=== PATIENT | female | born 1965 | race Caucasian/White ===

== ENCOUNTER 2016-09-27 18:57 | Emergency (ER) | payer OTHER ==
--- NOTE | 2016-09-27 19:50 | ED NURSING NOTES ---
Clinical Report - Nurses [facility] [address] [place] [address] 09/27/2016 19:00 Patient: DEBRA GRANT TRIAGE Triage time 19:17. Chief Complaint: DEPRESSION. --19:24 TonyaB, R.N. 19:17 09/27/16. BP: 107/56. HR: 68. RR: 16. O2 saturation: 100%. Temp: 98.2 F. Pain level now: 0/10. --19:24 TonyaB, R.N. Acuity: LEVEL 3. --19:24 TonyaB, R.N. Weight: 61.2 kg. Height/Length: 64 inches. BMI: 23.2. --19:21 TonyaB, R.N. Medications Lexapro Oral. --19:19 TonyaB, R.N. Cymbalta Oral. --19:19 TonyaB, R.N. SEROquel Oral. --19:20 TonyaB, R.N. Allergies No Known Drug Allergy. --19:19 TonyaB, R.N. History Arrived by private vehicle. Historian: patient. Accompanied by friend and friend. ( pt states she can not sleep and is depressed, pt states she has trouble leaving the house). This is a recurrent problem. (3 weeks). She describes feelings of depression and has had sleeping difficulties. Treatment CRITICAL CARE SPECIALIST: None. PAST MEDICAL HX: Immunizations: up-to-date. Last normal menstrual period- 1 weeks. SOCIAL HX: Never smoker. No alcohol use or drug use. No infectious disease exposure. SELF HARM ASSESSMENT: A self harm assessment was performed. The patient answered "yes" to the question "Have you recently felt down, depressed, or hopeless?", "Have you noticed less interest or pleasure in doing things?" and "Have you ever tried to hurt yourself before today?" and "no" to the question "Do you have thoughts of harming or killing yourself?", "Are you here because you tried to hurt yourself?", "Have you recently had thoughts about harming or killing others?" and "Do you have any dangerous items in your possession?". FALL RISK ASSESSMENT: Fall risk assessment completed. No fall risk identified. NUTRITIONAL RISK ASSESSMENT: The nutritional risk assessment revealed no deficiencies. FUNCTIONAL ASSESSMENT: Functional assessment: no impairments noted. LEARNING NEEDS ASSESSMENT: The learning needs assessment revealed no barriers. SKIN INTEGRITY ASSESSMENT: Skin integrity risk assessment completed. No skin integrity risk identified. --19:24 Tarsha Ayala PROBLEMS: Depression. --19:20 Markell Ayala. ADDITIONAL SURGERIES: no known surgeries. PHYSICAL ASSESSMENT Ambulatory to room. GENERAL / NEURO / PSYCH: Alert. Oriented X 4. Appears in no acute distress. Speech within normal limits. Patient's mood/affect appears flat. Patient appears calm and cooperative. Good eye contact. Patient appears well-nourished and neat and clean. RESPIRATORY: Respirations not labored. Breath sounds within normal limits. CVS: Normal heart rate and rhythm. Capillary refill less than 2 seconds. GI / : Abdomen soft and nontender. Bowel sounds within normal limits. SKIN: Skin intact. Skin is warm and dry. Skin color is within normal limits. --19:29 Tarsha Ayala NURSING PROGRESS NOTES Patient identifiers checked. Call light placed in reach. Side rails up x 1. Bed placed in lowest position. Brakes of bed on. --19:29 Tarsha Ayala DISPOSITION / DISCHARGE Departure time: 19:55. Condition at departure: improved. No learning barriers present. Discharge instructions provided and reviewed with the patient. Reviewed medication(s) side effects, precautions, dosing and course information. Prescription(s) given to the patient. Reviewed referral to a psychiatrist. Patient verbalized understanding. Written instructions provided in Kuwaiti. No warning instructions, treatment instructions, diet instructions, activity restrictions or note given. No follow up contact number given or stop smoking instructions. The patient was discharged by the nurse practitioner. She was discharged home and accompanied by museum or zoo director. She left the Emergency Department ambulatory and via private vehicle. [employer] driving. FALL RISK ASSESSMENT: Fall risk assessment completed. No fall risk identified. --20:03 Tarsha Ayala 19:53 09/27/16. BP: deferred. HR: deferred. RR: deferred. O2 saturation: deferred. Temp: deferred. Pain level now: 0/10. --20:03 Markell Ayala. Locked/Released at 09/27/2016 20:03 by Tarsha Ayala
--- NOTE | 2016-09-27 19:50 | ED NURSING NOTES ---
Clinical Report - Nurses [facility] [address] [place] [address] 09/27/2016 19:00 Patient: DEBRA GRANT TRIAGE Triage time 19:17. Chief Complaint: DEPRESSION. --19:24 TonyaB, R.N. 19:17 09/27/16. BP: 107/56. HR: 68. RR: 16. O2 saturation: 100%. Temp: 98.2 F. Pain level now: 0/10. --19:24 TonyaB, R.N. Acuity: LEVEL 3. --19:24 TonyaB, R.N. Weight: 61.2 kg. Height/Length: 64 inches. BMI: 23.2. --19:21 TonyaB, R.N. Medications Lexapro Oral. --19:19 TonyaB, R.N. Cymbalta Oral. --19:19 TonyaB, R.N. SEROquel Oral. --19:20 TonyaB, R.N. Allergies No Known Drug Allergy. --19:19 TonyaB, R.N. History Arrived by private vehicle. Historian: patient. Accompanied by friend and friend. ( pt states she can not sleep and is depressed, pt states she has trouble leaving the house). This is a recurrent problem. (3 weeks). She describes feelings of depression and has had sleeping difficulties. Treatment SALES APPOINTMENT COORDINATOR: None. PAST MEDICAL HX: Immunizations: up-to-date. Last normal menstrual period- 1 weeks. SOCIAL HX: Never smoker. No alcohol use or drug use. No infectious disease exposure. SELF HARM ASSESSMENT: A self harm assessment was performed. The patient answered "yes" to the question "Have you recently felt down, depressed, or hopeless?", "Have you noticed less interest or pleasure in doing things?" and "Have you ever tried to hurt yourself before today?" and "no" to the question "Do you have thoughts of harming or killing yourself?", "Are you here because you tried to hurt yourself?", "Have you recently had thoughts about harming or killing others?" and "Do you have any dangerous items in your possession?". FALL RISK ASSESSMENT: Fall risk assessment completed. No fall risk identified. NUTRITIONAL RISK ASSESSMENT: The nutritional risk assessment revealed no deficiencies. FUNCTIONAL ASSESSMENT: Functional assessment: no impairments noted. LEARNING NEEDS ASSESSMENT: The learning needs assessment revealed no barriers. SKIN INTEGRITY ASSESSMENT: Skin integrity risk assessment completed. No skin integrity risk identified. --19:24 Tarsha Ayala PROBLEMS: Depression. --19:20 Markell Ayala. ADDITIONAL SURGERIES: no known surgeries. PHYSICAL ASSESSMENT Ambulatory to room. GENERAL / NEURO / PSYCH: Alert. Oriented X 4. Appears in no acute distress. Speech within normal limits. Patient's mood/affect appears flat. Patient appears calm and cooperative. Good eye contact. Patient appears well-nourished and neat and clean. RESPIRATORY: Respirations not labored. Breath sounds within normal limits. CVS: Normal heart rate and rhythm. Capillary refill less than 2 seconds. GI / : Abdomen soft and nontender. Bowel sounds within normal limits. SKIN: Skin intact. Skin is warm and dry. Skin color is within normal limits. --19:29 Tarsha Ayala NURSING PROGRESS NOTES Patient identifiers checked. Call light placed in reach. Side rails up x 1. Bed placed in lowest position. Brakes of bed on. --19:29 Tarsha Ayala DISPOSITION / DISCHARGE Departure time: 19:55. Condition at departure: improved. No learning barriers present. Discharge instructions provided and reviewed with the patient. Reviewed medication(s) side effects, precautions, dosing and course information. Prescription(s) given to the patient. Reviewed referral to a psychiatrist. Patient verbalized understanding. Written instructions provided in Egyptian. No warning instructions, treatment instructions, diet instructions, activity restrictions or note given. No follow up contact number given or stop smoking instructions. The patient was discharged by the nurse practitioner. She was discharged home and accompanied by performance architect. She left the Emergency Department ambulatory and via private vehicle. [employer] driving. FALL RISK ASSESSMENT: Fall risk assessment completed. No fall risk identified. --20:03 Tarsha Ayala 19:53 09/27/16. BP: deferred. HR: deferred. RR: deferred. O2 saturation: deferred. Temp: deferred. Pain level now: 0/10. --20:03 Markell Ayala. Locked/Released at 09/27/2016 20:03 by Tarsha Ayala
--- NOTE | 2016-09-27 19:50 | ED CLINICAL REPORT ---
Clinical Report - Physicians/Mid Levels [facility] [address] [place] [address] 09/27/2016 19:00 Patient: DEBRA GRANT Time Seen: 19:22; upon arrival, initial patient contact, initial documentation, patient care assumed. Arrived- By private vehicle. Not in custody. Historian- patient and significant other. HISTORY OF PRESENT ILLNESS Chief Complaint: DEPRESSED and WITHDRAWN. This started about 1 months ago. No situational problems or recent drug use or alcohol consumption. She has not exhibited a behavior change, was not found wandering and is compliant with medication. (has suffered from major depressive disorder for years, last month it is getting worse, affecting her sleep and her adl's, pt is here tonight wanting to see and speak psychiatrist). Has not been sleeping. Has been depressed. No delusions, suicidal thoughts, self-injury inflicted or hallucinations. The symptoms are described as moderate. No injury is present. Similar symptoms previously: Recent medical care: The patient was seen recently by a health care provider. Seen for similar symptoms. Diagnosis: depression. ( was told by her dr to get into good exercise and sleep routine, advised to start every day with some type of exercise, to help with depression and sleep, pt has not done it). Evaluation/treatment: antidepressants. REVIEW OF SYSTEMS All systems otherwise negative, except as recorded above. PAST HISTORY See nurses notes. ( PROBLEMS: Depression. --19:20 Markell Ayala. ADDITIONAL SURGERIES: no known surgeries.). SOCIAL HISTORY Never smoker. No alcohol use or drug use. Has social support. Has place to stay. FAMILY HISTORY Negative. ADDITIONAL NOTES The nursing notes have been reviewed with agreement regarding the chief complaint, HPI, ROS, PMH and patient medications and allergies. PHYSICAL EXAM Vital Signs: 09/27/2016 19:17 BP: 107/56. HR: 68. RR: 16. O2 saturation: 100%. Temp: 98.2 F. Pain level now: 0/10. Have been reviewed as normal and appear to be correct. Appearance: Alert. No acute distress. Appearance is normal. Eyes: Pupils equal, round and reactive to light. Neck: Normal inspection. Neck supple. CVS: Normal heart rate and rhythm. Heart sounds normal. Respiratory: Breath sounds normal. Chest nontender. Abdomen: Soft and nontender. Back: No tenderness. Skin: Skin warm and dry. Normal skin color. Normal skin turgor. Extremities: Extremities exhibit normal ROM. No lower extremity edema. Psych / Neuro: Oriented X 3. Mood and affect normal. Speech normal. Cognition normal. Thought process and content normal. Insight and judgement normal. Cranial nerves normal (as tested). No cerebellar findings. No motor deficit. No sensory deficit. PROGRESS AND PROCEDURES Course of Care: tx options discussed, re calling in pat person, give names of psychiatrists, sleep meds, exercise routine, getting involved in hobbies/activities that she enjoys. Patient and spouse counseled in person regarding the patient's stable condition and diagnosis. Differential Diagnosis: Other possible considerations: si, depression, insomnia, bipolar. Above considerations are based on history and physical exam. Differential diagnosis was discussed with patient and patient's spouse. Disposition: Discharged home in good and unchanged condition (19:50). Condition: good and stable. CLINICAL IMPRESSION Recurrent mild major depressive disorder without psychosis. No suicidal ideation or suicidal attempt. Psychophysiologic insomnia associated with medical condition. INSTRUCTIONS Warnings: GENERAL WARNINGS: Return or contact your physician immediately if your condition worsens or changes unexpectedly, if not improving as expected, or if other problems arise. Specifically return if problem worsens. Prescription Medications: Lunesta 2 mg: take 1 orally at bedtime as needed for sleep. Dispense ten (10). No refills. Substitution is permissible. Follow-up: Follow up with a psychiatrist in about two days even if well. Call for an appointment. Reason for referral: see list of psychiatrist given. Summary of care provided to patient and family. Understanding of the discharge instructions verbalized by patient. (Electronically signed by Lisandra Sanchez A.R.N.P. 09/27/2016 21:00)
--- NOTE | 2016-09-27 21:00 | ED MED RECONCILIATION SUMMARY ---
Patient: DEBRA GRANT Medication Reconciliation Report [facility] VisitID: [id number] [address] [place] [address] 51y, F Registration Date/Time: 09/27/2016 Weight: 61.2 kg Height/Length: 64 in. BMI: 23.2 ALLERGIES: No Known Drug Allergy The patient's Home Medications are listed below: THE FOLLOWING MEDICATIONS NEED TO BE RECONCILED: Cymbalta Oral Lexapro Oral SEROquel Oral The source(s) of the original Home Medication information: Not obtained. The following Medications were given to the patient in the Emergency Department: None. The following Medications were prescribed to the patient: Lunesta 2 mg: take 1 orally at bedtime as needed for sleep. Dispense ten (10). No refills. Substitution is permissible. -- Lisandra Sanchez A.R.N.P.
--- NOTE | 2016-09-27 21:00 | ED MAR SUMMARY ---
..... Medication Administration Record [facility] [address], [place] [id number] Patient: DEBRA GRANT Visit ID: [id number] 51y, F Weight: 61.2 kg Height/Length: 64 in BMI: 23.2 ALLERGIES: No Known Drug Allergy
--- NOTE | 2016-09-27 21:00 | ED MAR SUMMARY ---
..... Medication Administration Record [facility] [address] [place], [place] [id number] Patient: DEBRA GRANT Visit ID: [id number] 51y, F Weight: 61.2 kg Height/Length: 64 in BMI: 23.2 ALLERGIES: No Known Drug Allergy
--- NOTE | 2016-09-27 21:00 | ED DISCHARGE INSTRUCTIONS ---
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 No suicidal ideation or suicidal attempt. Psychophysiologic insomnia associated with medical condition. INSTRUCTIONS Warnings: GENERAL WARNINGS: Return or contact your physician immediately if your condition worsens or changes unexpectedly, if not improving as expected, or if other problems arise. Specifically return if problem worsens. Prescription Medications: Lunesta 2 mg: take 1 orally at bedtime as needed for sleep. Dispense ten (10). No refills. Substitution is permissible. Follow-up: Follow up with a psychiatrist in about two days even if well. Call for an appointment. Reason for referral: see list of psychiatrist given. Summary of care provided to patient and family. Understanding of the discharge instructions verbalized by patient. ADDITIONAL INFORMATION Depression Depression is one of the most common mental health problems today. It is not just a state of unhappiness or sadness. It is a true disease. The cause seems to be related to a decrease in chemicals that transmit signals in the brain. Having a family history of depression, alcoholism or suicide increases the risk. Chronic illness, chronic pain, migraine headaches and high emotional stress also increase the risk. Depression can cause many different symptoms, such as: -- Loss of appetite -- Over-eating -- Not being able to sleep -- Sleeping too much -- Tiredness not related to physical exertion -- Restlessness or irritability -- Slowness of movement or speech -- Feeling depressed or withdrawn -- Loss of interest in things you once enjoyed -- Difficulty in concentrating, poor memory, have trouble making decisions -- Thoughts of harming or killing oneself, or thoughts that life is not worth living -- Low self-esteem The best treatment for depression is a combination of medicine and psychotherapy. Antidepressant medicines can reduce suffering and can improve the ability to function during the depressed period. Therapy can offer emotional support and help you understand emotional factors that may be causing the depression. Home Care: 1) Be kind to yourself. Make it a point to do things that you enjoy (gardening, walking in nature, going to a movie, etc.). Reward yourself for small successes. 2) Take care of your physical body. Eat a balanced diet (low in saturated fat and high in fruits and vegetables). Establish an exercise plan at least 3 times a week for 30 minutes. Even mild-moderate exercise (like brisk walking) can make you feel better. 3) Avoid alcohol, which can make depression worse. Follow-Up with your doctor as advised. It is important to keep in contact with a health care provider until your symptoms begin to improve. Get Prompt Medical Attention if any of the following occur: -- Feeling extreme depression, fear, anxiety, or anger toward yourself or others -- Feeling out of control -- Feeling that you may try to harm yourself or another -- Hearing voices that others do not hear -- Seeing things that others do not see -- Cant sleep or eat for 3 days in a row Insomnia Insomnia refers to a difficulty going to sleep or staying asleep, or both. Insomnia has many causes, including anxiety, stress, depression, chronic pain, sleeping cycles out of balance due to working night shifts or excess napping during the day, and a condition called sleep apnea. Insomnia can be a side effect from stimulant medicines such as decongestants, asthma inhalers and pills, diet pills, and illegal drugs such as speed, crank, crack, and PCP. Home Care: Review your medicines with your doctor or pharmacist to find out if they can cause insomnia. Caffeine, smoking and alcohol also affect sleep. Limit your daily use and do not use these before bedtime. Alcohol may make you sleepy at first, but as its effects wear off, you may awaken a few hours later and have trouble returning to sleep. Do not exercise, eat or drink large amounts of liquid within 2 hours of your bedtime. Improve your sleep habits. Have a fixed bed and wake-up time. Try to keep noise, light and heat in your bedroom at a comfortable level. Try using earplugs or eyeshades if needed. Avoid watching TV in bed. If you do not fall asleep within 30 minutes, try to relax by reading or listening to soft music. Limit daytime napping to one 30 minute period, early in the day. Get regular exercise. Find other ways to lessen your stress level. If a medicine was prescribed to help reset your sleep patterns, take it as directed. Sleeping pills are intended for short-term use, only. If taken for too long, the effect wears off while the risk of physical addiction and psychological dependence increases. Follow-Up with your doctor or as directed by our staff if you feel that your insomnia is not responding to the above measures. Get Prompt Medical Attention if any of the following occur: Extreme restlessness or irritability Confusion or hallucinations (seeing or hearing things that are not there) Anxiety, depression Several days without sleeping You have been given the following additional information: Depression Insomnia (Electronically signed by Lisandra Sanchez A.R.N.P. 09/27/2016 21:00)
--- NOTE | 2016-09-27 21:00 | ED MED RECONCILIATION SUMMARY ---
Patient: DEBRA GRANT Medication Reconciliation Report [facility] VisitID: [id number] [address] [place] [address] 51y, F Registration Date/Time: 09/27/2016 Weight: 61.2 kg Height/Length: 64 in. BMI: 23.2 ALLERGIES: No Known Drug Allergy The patient's Home Medications are listed below: THE FOLLOWING MEDICATIONS NEED TO BE RECONCILED: Cymbalta Oral Lexapro Oral SEROquel Oral The source(s) of the original Home Medication information: Not obtained. The following Medications were given to the patient in the Emergency Department: None. The following Medications were prescribed to the patient: Lunesta 2 mg: take 1 orally at bedtime as needed for sleep. Dispense ten (10). No refills. Substitution is permissible. -- Lisandra Sanchez A.R.N.P.
== END 2016-09-27 19:55 | disposition home or self-care (01) ==
LOC: ED SRH 18:57
DX: F33.0 Major depressive disorder, recurrent, mild (principal); F51.04 Psychophysiologic insomnia

== ENCOUNTER 2016-10-17 18:17 | Inpatient (IN) | payer OTHER ==
[~2016-10-17] VITALS: Ht 152.4 cm; Wt 60.7 kg
--- NOTE | 2016-10-17 21:04 | ED ORDER SUMMARY ---
..... Patient: DEBRA GRANT OrderSheet [facility] VisitID: [id number] [place] [address] 51y, F Registration Date/Time: 10/17/2016 ORDER SHEET Weight: 61.2 kg (stated) Allergies: No Known Drug Allergy GENERAL ORDERS: Baker (Continuous) (18:23 10/17/2016 EKoroleva P.A.-C) (Ack 18:27 IJurca ER Tech1) (18:46 LSullivan R.N.) PT with INR Urgent (18:23 10/17/2016 EKoroleva P.A.-C) (Ack 18:27 IJurca ER Tech1) (18:46 LSullivan R.N.) PTT Urgent (18:23 10/17/2016 EKoroleva P.A.-C) (Ack 18:27 IJurca ER Tech1) (18:46 LSullivan R.N.) Cardiac Panel Stat (18:23 10/17/2016 EKoroleva P.A.-C) (Ack 18:27 IJurca ER Tech1) (18:46 LSullivan R.N.) Lipase Urgent (18:23 10/17/2016 EKoroleva P.A.-C) (Ack 18:27 IJurca ER Tech1) (18:46 LSullivan R.N.) EKG - ER Stat (18:23 10/17/2016 EKoroleva P.A.-C) (Ack 18:27 IJurca ER Tech1) (18:46 LSullivan R.N.) Urine Drug Screen Urgent (18:47 10/17/2016 EKoroleva P.A.-C) (Ack 18:50 IJurca ER Tech1) (20:21 CBradburn R.N.) Urine Urgent (18:47 10/17/2016 EKoroleva P.A.-C) (Ack 18:50 IJurca ER Tech1) (20:21 CBradburn R.N.) UA-Culture if indicated Urgent (18:47 10/17/2016 EKoroleva P.A.-C) (Ack 18:50 IJurca ER Tech1) (20:21 CBradburn R.N.) Acetaminophen Level Urgent (18:47 10/17/2016 EKoroleva P.A.-C) (Ack 18:50 IJurca ER Tech1) (19:43 CBradburn R.N.) Salicylate Level Urgent (18:47 10/17/2016 EKoroleva P.A.-C) (Ack 18:50 IJurca ER Tech1) (19:43 CBradburn R.N.) Ethyl Alcohol Urgent (19:01 10/17/2016 Tramaine Cooper) (Ack 19:03 IJurca ER Tech1) (19:43 CBradburn R.N.) Amylase Urgent (21:01 10/17/2016 Tramaine oCoper) (Ack 21:03 [facility] Paunch Trimmer) (21:24 CBradburn R.N.) MEDICATION ORDERS: Activated Charcoal PO 100 gm (NOW) (18:23 10/17/2016 EKoroleva P.A.-C) (18:46 LSullivan R.N.) IV FLUIDS: Reglan IV 10 mg (NOW) (18:23 10/17/2016 EKoroleva P.A.-C) (18:44 LSullivan R.N.) IV NS : initial bolus 1000 mL (1000 mL/hr), then 1000 mL/hr for X1 (NOW); Silverio (18:23 10/17/2016 EKoroleva P.A.-C) (18:58 LSullivan R.N.) ORDER SHEET NOTES: [Electronically signed by Yesy Meza R.N. (23:10/17/2016)] [Electronically signed by Sven Sears Dr. (00:26 10/18/2016)] [Electronically locked/signed by Yesy Meza R.N. (23:10/17/2016)]
--- NOTE | 2016-10-17 21:04 | ED NURSING NOTES ---
Clinical Report - Nurses [facility] [place] [address] 10/17/2016 18:17 Patient: DEBRA GRANT TRIAGE Triage time 18:26. Acuity: LEVEL 3. Chief Complaint: DRUG OVERDOSE and SUICIDE ATTEMPT and DEPRESSED. Alert. No acute distress. SEPSIS SCREEN: Sepsis Screen. Negative (no infection suspected/documented). --18:36 Ofelia Sanchez R.N. 18:26 10/17/16. BP: 107/72. HR: 80. RR: 18. O2 saturation: 100%. Temp: 98.1 F. Pain level now: 0/10. --18:36 Ofelia Sanchez R.N. Weight: 61.2 kg stated. Height/Length: 64 inches Per Patient. BMI: 23.2. --18:31 Ofelia Sanchez R.N. Medications SEROquel Oral 100 mg, at bedtime. --18:33 Ofelia Sanchez R.N. Cymbalta Oral 60 mg daily in am. --18:34 Ofelia Sanchez R.N. Lexapro Oral 20 mg, daily. --18:34 Ofelia Sanchez R.N. Allergies No Known Drug Allergy. --18:35 Ofelia Sanchez R.N. History Arrived by EMS. Historian: EMS. Primary physician (Fifi Moreno, at [facility]). ( Pt took 240, 60 mg tablets of Cymbalta, states she was feeling depressed today.). This occurred 3 PM today. ( Poison control called, advice obtained on overdose effects.). No loss of consciousness. Denies having hallucinations. 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 See report. ( 800 mls of NS completed of a 1000ml bag, has IV in LAC started by EMS). PAST MEDICAL HX: Previous suicide attempts ("a few times"). SOCIAL HX: Never smoker. No alcohol use or drug use. SELF HARM ASSESSMENT: A self harm assessment was performed. The patient answered "yes" to the question "Have you recently felt down, depressed, or hopeless?", "Have you noticed less interest or pleasure in doing things?", "Do you have thoughts of harming or killing yourself?", "Are you here because you tried to hurt yourself?" and "Have you ever tried to hurt yourself before today?" and "no" to the question "Have you recently had thoughts about harming or killing others?" and "Do you have any dangerous items in your possession?". The patient reports their behavior. In the ED the patient has been anxious. NUTRITIONAL RISK ASSESSMENT: The nutritional risk assessment revealed no deficiencies. FUNCTIONAL ASSESSMENT: Functional assessment: no impairments noted. --18:36 Ofelia Sanchez R.N. PAST MEDICAL HX: Last normal menstrual period now. Denies current . --18:48 Ofelia Sanchez R.N. ( belongings in LOCKER #5, LOCK #2). --18:53 Ruth Humphreys R.N. Interventions ID band on patient. To room. --18:36 Ofelia Sanchez R.N. PHYSICAL ASSESSMENT Patient gowned. GENERAL / NEURO / PSYCH: Alert. Oriented X 4. Appears in no acute distress. Appears anxious. ( Denies any pain or headache, has had nausea and had vomited DIVING BOARD ASSEMBLER). --18:37 Ofelia Sanchez R.N. 18:48 10/17/16. GENERAL / NEURO / PSYCH: ( Pt states she does not want to be burden and that's why she tried to kill herself.). --18:48 Ofelia Sanchez R.N. NURSING PROGRESS NOTES 18:28 10/17/2016 Site #1 started prior to arrival by EMS via IV in the left antecubital space with an 20g angiocath. --18:43 Ofelia Sanchez R.N. 18:31 10/17/2016 Activated Charcoal (Charcoal) PO 100 gm given. Allergies verified and confirmed 5 rights. --18:46 Ofelia Sanchez R.N. 18:40 10/17/16. Head of bed elevated. Reassurance given. Suicide precautions initiated: a safety sweep of the room has been completed. Room made safe. Frequent one on one supervision, clothing / valuables removed. Patient identifiers checked. Call light placed in reach. Bed placed in lowest position. --18:40 Ofelia Sanchez R.N. 18:43 10/17/2016 Reglan (Metoclopramide HCl) IVP 10 mg given over 2 minute(s) via site #1. Allergies verified and confirmed 5 rights. IV patency established. IV site checked: no pain, redness, or swelling. IV flushed thoroughly pre- and post-medication administration. --18:44 Ofelia Sanchez R.N. 18:47 10/17/16. ( Pt vomited charcoal into emesis bag, lots of pill fragments seen in emesis x 2). --18:47 Ofelia Sanchez R.N. 18:40. equipment monitor phototypesetting, pulse oximeter and NIBP monitor placed on patient; laboratory monitor- Lead II and V1; monitor alarms on. --18:49 Ofelia Sanchez R.N. 18:57 10/17/16. ( Pt requested and was given ice water to drink). --18:57 Ofelia Sanchez R.N. 18:58 10/17/2016 Started bag #2 1000 mL IV Fluids IV NS (Saline); at 1000 mL/hr via site #1. Confirmed 5 rights. --18:58 Ofelia Sanchez R.N. 18:59 10/17/2016 Site #2 started via IV in the right wrist with an 20g angiocath, with aseptic technique and good blood return; one attempt. Blood drawn: rainbow set. Labeled in the presence of the patient and sent to the lab. Saline lock flushed with 10 mL saline. --18:59 Ofelia Sanchez R.N. 19:05 10/17/16. Care transferred and report given (to LAKHWINDER Hayward). --19:05 Ofelia Sanchez R.N. 19:30 10/17/16. BP: 103/67 taken on the right arm, while lying. HR: 87 (regular, normal rate and strong). RR: 18. O2 saturation: 98% on room air. Temp: deferred. Pain level now: 0/10. --19:37 Yesy Meza R.N. Reassessment after fluids administered. She is calm. Overall patient status is the same. ( pt reports feeling dizzy, VSS, will continue to monitor.). GENERAL / NEURO / PSYCH: The patient reports anxiety is still present and currently moderate in severity. The patient reports feelings of depression that are mild in severity and associated with suicidal ideation. Patient is calm and cooperative. Alert. Oriented X 4. RESPIRATORY: No respiratory distress. GI / : No vomiting noted. SKIN: Skin is warm and dry. Two patient identifiers checked. Call light placed in reach. Side rails up x 2. Bed placed in lowest position. Brakes of bed on. --19:37 Yesy Meza R.N. Suicide precautions initiated: a safety sweep of the room is ongoing. Continuous one on one supervision. --19:37 Yesy Meza R.N. equipment monitor phototypesetting, pulse oximeter and NIBP monitor placed on patient; laboratory monitor- Lead II. --19:37 Yesy Meza R.N. 8 fr in/out catheterization. Return of 50 mL green-colored clear urine. She tolerated procedure well. Suicide precautions initiated: a safety sweep of the room is ongoing. Continuous one on one supervision. ( pt ambulated to and from BR with assistance, slight dizziness noted, pt unable to void, pt straight cathed for urine. pt placed back on monitor, no distress noted at this time. Will continue to monitor). Two patient identifiers checked. Call light placed in reach. Side rails up x 2. Bed placed in lowest position. Brakes of bed on. --20:24 Yesy Meza R.N. ( poison control Terrance called to update, informed to watch for QT changes and monitor for possible seizure activity, pt should be monitored overnight per poison control). --20:43 Yesy Meza R.N. 20:30 10/17/16. BP: 103/61 taken on the right arm, while lying. HR: 91. RR: 18. O2 saturation: 96% on room air. Temp: deferred. Pain level now: 0/10. --20:44 Yesy Meza R.N. The patient reports no complaints and she is calm and resting quietly. ( Close to nurses station, suicide precautions in place. will continue to monitor. VSS). GENERAL / NEURO / PSYCH: Patient is calm and cooperative. Alert. Oriented X 4. RESPIRATORY: No respiratory distress. GI / : No vomiting noted. SKIN: Skin is warm and dry. Skin color within normal limits. --21:26 Yesy Meza R.N. 21:15 10/17/16. BP: 104/66 taken on the right arm, while lying. HR: 94 (regular and normal rate). RR: 18 (regular, unlabored and normal). O2 saturation: 98%. Temp: deferred. Pain level now: 0/10. --21:27 Yesy Meza R.N. ( H+P FORM GIVEN TO PATIENT). --21:30 Cristofer Banks, ER Online Merchandiser 22:26 10/17/2016 Site #[address] upon admission; patent, no pain and no signs of infection or infiltration. Good blood return present. Flushed with 10 mL saline; flushes easily. --22:26 Yesy Meza R.N. 22:26 10/17/2016 Site #[address] upon admission; patent, no pain and no signs of infection or infiltration. Good blood return present. Flushed with 10 mL saline; flushes easily. --22:27 Yesy Meza R.N. 22:26 10/17/2016 IV Fluids IV NS Discontinued: bag #1 completed. Total amount infused: 1000 mL. IV patency established. IV site checked: no pain, redness, or swelling. IV flushed thoroughly. --22:26 Yesy Meza R.N. GENERAL / NEURO / PSYCH: The patient reports anxiety is still present and currently moderate in severity. Patient is calm and cooperative. Alert. Oriented X 4. RESPIRATORY: No respiratory distress. GI / : The patient reports nausea is gone now. No vomiting noted. SKIN: Skin is warm and dry. Skin color within normal limits. --22:27 Yesy Meza R.N. 22:24 10/17/16. BP: 124/89 taken on the right arm, while lying. HR: 79 (regular). RR: 18 (regular). O2 saturation: 98% on room air. Temp: 97.8 F (oral). Pain level now: 0/10. --22:27 Yesy Meza R.N. DISPOSITION / DISCHARGE Admitted to the Critical Care Unit. Transported via stretcher by nurse with monitor. Report was given to a nurse via a phone call. Report included patient's care, treatment, medications, reviewed medication reconcilliation, and condition (including any recent changes or anticipated changes). All questions were answered. Report was acknowledged and care was transferred. (Solange BUNN for ICU). Patient's personal items; items were transported with the patient. --22:38 Yesy Meza R.N. Departure time: 2242. --22:59 Yesy Meza R.N. 22:46 10/17/16. BP: 130/62 taken on the right arm, while lying. HR: 67 (regular and normal rate). RR: 18 (regular and unlabored). O2 saturation: 96% on room air. Temp: deferred. Pain level now: 0/10. --23:00 Yesy Meza R.N. Locked/Released at 10/17/2016 23:01 by Yesy Meza R.N.
--- NOTE | 2016-10-17 21:04 | ED ORDER SUMMARY ---
..... Patient: DEBRA GRANT OrderSheet [facility] VisitID: [id number] [place] [address] 51y, F Registration Date/Time: 10/17/2016 ORDER SHEET Weight: 61.2 kg (stated) Allergies: No Known Drug Allergy GENERAL ORDERS: Court Bailiff (Continuous) (18:23 10/17/2016 EKoroleva P.A.-C) (Ack 18:27 IJurca ER Tech1) (18:46 LSullivan R.N.) PT with INR Urgent (18:23 10/17/2016 EKoroleva P.A.-C) (Ack 18:27 IJurca ER Tech1) (18:46 LSullivan R.N.) PTT Urgent (18:23 10/17/2016 EKoroleva P.A.-C) (Ack 18:27 IJurca ER Tech1) (18:46 LSullivan R.N.) Cardiac Panel Stat (18:23 10/17/2016 EKoroleva P.A.-C) (Ack 18:27 IJurca ER Tech1) (18:46 LSullivan R.N.) Lipase Urgent (18:23 10/17/2016 EKoroleva P.A.-C) (Ack 18:27 IJurca ER Tech1) (18:46 LSullivan R.N.) EKG - ER Stat (18:23 10/17/2016 EKoroleva P.A.-C) (Ack 18:27 IJurca ER Tech1) (18:46 LSullivan R.N.) Urine Drug Screen Urgent (18:47 10/17/2016 EKoroleva P.A.-C) (Ack 18:50 IJurca ER Tech1) (20:21 CBradburn R.N.) Urine Urgent (18:47 10/17/2016 EKoroleva P.A.-C) (Ack 18:50 IJurca ER Tech1) (20:21 CBradburn R.N.) UA-Culture if indicated Urgent (18:47 10/17/2016 EKoroleva P.A.-C) (Ack 18:50 IJurca ER Tech1) (20:21 CBradburn R.N.) Acetaminophen Level Urgent (18:47 10/17/2016 EKoroleva P.A.-C) (Ack 18:50 IJurca ER Tech1) (19:43 CBradburn R.N.) Salicylate Level Urgent (18:47 10/17/2016 EKoroleva P.A.-C) (Ack 18:50 IJurca ER Tech1) (19:43 CBradburn R.N.) Ethyl Alcohol Urgent (19:01 10/17/2016 Tramaine Cooper) (Ack 19:03 IJurca ER Tech1) (19:43 CBradburn R.N.) Amylase Urgent (21:01 10/17/2016 Tramaine Cooper) ([facility]ck 21:[facility] (21:24 CBradburn R.N.) MEDICATION ORDERS: Activated Charcoal PO 100 gm (NOW) (18:23 10/17/2016 EKoroleva P.A.-C) (18:46 LSullivan R.N.) IV FLUIDS: Reglan IV 10 mg (NOW) (18:23 10/17/2016 EKoroleva P.A.-C) (18:44 LSullivan R.N.) IV NS : initial bolus 1000 mL (1000 mL/hr), then 1000 mL/hr for X1 (NOW); Silverio (18:23 10/17/2016 EKoroleva P.A.-C) (18:58 LSullivan R.N.) ORDER SHEET NOTES: [Electronically signed by Yesy Meza R.N. (23:10/17/2016)] [Electronically signed by Sven Sears Dr. (00:26 10/18/2016)] [Electronically locked/signed by Yesy Meza R.N. (23:10/17/2016)]
--- NOTE | 2016-10-17 21:04 | ED CLINICAL REPORT ---
Clinical Report - Physicians/Mid Levels [facility] [address] [place] [address] 10/17/2016 18:17 Patient: DEBRA GRANT Time Seen: 18:24 Oct 17 2016. Arrived- By ambulance. Historian- patient and EMS personnel. HISTORY OF PRESENT ILLNESS Chief Complaint: DRUG OVERDOSE and SELF-INJURY. This occurred just prior to arrival. No toxic symptoms present. No toxic symptoms present. Single drug taken- @240 of cymbalta 60 mg. She inflicted self-injury. Rescue was likely for this event. She sought help. The symptoms are described as severe. The patient has been depressed. Has had suicidal thoughts. Similar symptoms previously: None. Recent medical care: Not recently seen/assessed. REVIEW OF SYSTEMS No headache, weakness or chest pain. All systems otherwise negative, except as recorded above. PAST HISTORY Prior suicide attempt. SOCIAL HISTORY Never smoker. No alcohol use or drug use. No social support. Has place to stay. ADDITIONAL NOTES The nursing notes have been reviewed. PHYSICAL EXAM Vital Signs: 10/17/2016 18:26 BP: 107/72. HR: 80. RR: 18. O2 saturation: 100%. Temp: 98.1 F. Pain level now: 0/10. Blood pressure normal. Oxygen saturation normal. Appearance: Alert. Oriented X3. No acute distress. Eyes: Pupils equal, round and reactive to light. No nystagmus. Extraocular movements normal. ENT: Normal ENT inspection. TM's normal. Pharynx normal. Neck: Normal inspection. Neck supple. CVS: Normal heart rate and rhythm. Heart sounds normal. Pulses normal. Respiratory: No respiratory distress. Breath sounds normal. Abdomen: Soft and nontender. No organomegaly. Skin: Skin warm and dry. Normal skin color. No rash. Normal skin turgor. Extremities: Extremities exhibit normal ROM. No lower extremity edema. Neuro: Alert. Oriented X 3. Speech normal. Cranial nerves normal (as tested). No cerebellar findings. No motor deficit. No sensory deficit. Reflexes normal. (depressed mood. congruent affect. no HI. no hallucinations or delusions). LABS, X-RAYS, AND EKG EKG: No acute process. No acute ischemia. Normal EKG. Normal sinus rhythm. Rate: 72. Normal P waves. Normal JERICHO. Normal QRS complex. Normal axis. Normal ST and T waves, QT and QTc. normal sinus. The study has been interpreted contemporaneously. The study has been independently viewed by me. The EKG appears to be a good tracing. Artifact present. Laboratory Tests: UA-Culture if indicated: (SHYLA: 10/17/2016 20:14) ( [facility] 10/17/2016 20:51) Final results Test Result Flag Units (Reference) URINE COLOR YELLOW URINE APPEARANCE CLEAR URINE GLUCOSE NEGATIVE (NEGATIVE) URINE BILIRUBIN NEGATIVE (NEGATIVE) URINE KETONE NEGATIVE (NEGATIVE) URINE SPECIFIC GRAVITY 1.010 (1.010-1.030) URINE PH 6.0 (5.0-8.0) URINE PROTEIN NEGATIVE (NEGATIVE) URINE UROBILINOGEN 0.2 EU/dL (0.2-1.0) URINE NITRITE NEGATIVE (NEGATIVE) URINE BLOOD NEGATIVE (NEGATIVE) URINE LEUK ESTERASE NEGATIVE (NEGATIVE) URINE RBC 1-3 rbc/hpf (0-1) URINE WBC 0-1 wbc/hpf (0-1) URINE EPITHELIAL CELLS 0-1 EPI/hpf (0-5) URINE BACTERIA TRACE (<1+) (NONE SEEN) URINE COMMENT CULT NOT INDICATED URINE CULTURES ARE SET-UP BASED ON THE FOLLOWING CRITERIA:POSITIVE NITRITEPOSITIVE LEUKOCYTE ESTERASEGREATER THAN 10 WHITE BLOOD CELLSMODERATE (2+) OR GREATER BACTERIA Urine: (SHYLA: 10/17/2016 20:14) ( [facility] 10/17/2016 20:43) Final results Test Result Flag Units (Reference) URINE NEGATIVE CBC w Diff: (SHYLA: 10/17/2016 18:50) ( [facility] 10/17/2016 19:29) Final results Test Result Flag Units (Reference) WHITE BLOOD COUNT 5.8 K/uL (4.5-11.5) RED BLOOD COUNT 4.13 M/uL (4.00-5.20) HEMOGLOBIN 13.7 gm/dL (12.0-16.0) HEMATOCRIT 41.5 % (36.0-46.0) MEAN CELL VOLUME 101 H fL (80-100) MEAN CORPUSCULAR HGB 33 pg (26-34) MEAN CORPUSCULAR HGB CONC 33 g/dL (31-37) RED CELL DISTRIBUTION WIDTH 13.8 % (11.6-14.8) PLATELET COUNT 295 K/uL (150-400) NEUTROPHIL % 51.0 % (50-75) LYMPH % 37.4 % (25-40) MONO % 10.4 % (3-14) EOSINOPHIL % 0.6 % (0-4) BASOPHIL % 0.6 % (0-2) PT with INR: (SHYLA: 10/17/2016 18:50) ( [facility] 10/17/2016 19:33) Final results Test Result Flag Units (Reference) INR 0.9 (0.8-1.2) Low Intensity Therapy: INR 1.5-2.0 PT range 18.5-23.1Mod.Intensity Therapy: INR 2.0-3.0 PT range 23.1-31.5High Intensity Therapy: INR 2.5-3.5 PT range 27.4-35.5High Intensity Therapy 2: INR 3.0-4.0 PT range 31.5-39.3 APTT 23 L SECONDS (24-34) Amylase: (SHYLA: 10/17/2016 21:08) ( [facility] 10/17/2016 21:17) Final results Test Result Flag Units (Reference) AMYLASE 366 H U/L (25-115) Ethyl Alcohol: (SHYLA: 10/17/2016 18:45) ( [facility] 10/17/2016 19:28) Final results Test Result Flag Units (Reference) ETHYL ALCOHOL <3 L mg/dL (3-10) Urine Drug Screen: (SHYLA: 10/17/2016 20:14) ( [facility] 10/17/2016 21:02) Final results Test Result Flag Units (Reference) AMPHETAMINE/METHAMPHETAMINE NEGATIVE (NEGATIVE) BARBITURATE NEGATIVE (NEGATIVE) BENZODIAZEPINE NEGATIVE (NEGATIVE) CANNABINOID NEGATIVE (NEGATIVE) COCAINE NEGATIVE (NEGATIVE) ECSTASY NEGATIVE (NEGATIVE) METHADONE NEGATIVE (NEGATIVE) OPIATE NEGATIVE (NEGATIVE) The urine drug screen is a qualitative screening test fordrug overdose and abuse. All screen results should beconsidered as presumptive.Drugs screened for are as follows:BenzodiazepinesCocaineAmphetamines/MetamphetaminesTHC (Tetrahydrocannabinol)OpiatesBarbituratesEcstasyMethadonePositive results are unconfirmed. For confirmation, notifythe lab for the specimen to be sent to the reference lab.All confirmations must be performed by a differentmethodology.The ingestion of natural herbal and plant productscontaining Ephedra/Ephedra metabolites can produce in urineone or more substances capable of cross reacting withamphetamine/methamphetamine immunoassays. These testsprovide a preliminary result only. A more specificalternative chemical method must be used to obtain aconfirmed analytical result. Salicylate Level: (SHYLA: 10/17/2016 18:47) ( [facility] 10/17/2016 19:42) Final results Test Result Flag Units (Reference) SALICYLATE <2.8 L mg/dL (2.8-20) Acetaminophen Level: (SHYLA: 10/17/2016 18:50) ( [facility] 10/17/2016 19:42) Final results Test Result Flag Units (Reference) ACETAMINOPHEN < 10 L ug/mL (10-30) Lipase: (SHYLA: 10/17/2016 18:50) ( [facility] 10/17/2016 19:44) Final results Test Result Flag Units (Reference) LIPASE 6590 H U/L (73-393) CHEM 13 PANEL: (SHYLA: 10/17/2016 18:50) ( [facility] 10/17/2016 19:27) Final results Test Result Flag Units (Reference) GLUCOSE 104 mg/dL (70-110) BUN 13 mg/dL (7-18) CREATININE 0.7 mg/dL (0.6-1.3) Estimated GFR >60 mL/min Estimated GFR- >60 mL/min Note: Persistent reduction over 3 months in eGFR<60 mL/min/1.73 m2 defines CKD. Patients with eGFR values>=60 mL/min/1.73 m2 may also have CKD if evidence ofpersistent proteinuria. Additional information may be foundat www.kidney.org. SODIUM 147 H mmol/L (136-145) POTASSIUM 3.9 mmol/L (3.5-5.1) CHLORIDE 109 H mmol/L (98-107) CARBON DIOXIDE 22 mmol/L (21-32) CALCIUM 9.1 mg/dL (8.5-10.1) TOTAL PROTEIN 7.3 g/dL (6.4-8.2) ALBUMIN 3.9 g/dL (3.3-5.0) BILIRUBIN, TOTAL 0.4 mg/dL (0.0-1.0) ALKALINE PHOSPHATASE 45 L U/L (46-116) AST (SGOT) 20 U/L (15-37) ALT (SGPT) 23 U/L (12-78) CPK 99 U/L (24-260) MAGNESIUM 2.0 mg/dL (1.8-2.4) TROPONIN I <0.05 ng/mL (0.00-1.5) TROPONIN REFERENCE RANGE:<0.1 NEGATIVE0.1-1.5 INDETERMINANT>1.5 POSITIVE . PROGRESS AND PROCEDURES Course of Care: Poison control contacted upon arrival advised of charcoal if patient awake after 1 hour, and able to tolerate. Monitor for seizure/ cardiac arrhythmias/ serotonin syndrome. the patient is a pleasant 51-year-old female with overdose. Initial evaluation performed by mid-level provider. I've taken over the patient's care after triage orders have been placed. Agree with the initial assessment and plan. Alcohol also added on the patient's workup. Patient be monitored here in the emergency department. Charcoal as been given. Patient had one episode of nausea and vomiting. Patient is maintaining her airway and is alert and oriented. Workup is currently pending. EKG is noted for the findings above. had spoken to toxicology in regards to the patient's acute ingestion. No other abnormalities noted on patient's workup. Patient continues to be a normal mental status withoutfurther symptoms. Because of the overdose, poison control recommended patient be admitted to the hospital for observation. In speaking with the hospitalist, recommended patient be admitted to the intensive care unit. Patient will be monitored closely there. Discussed with the patient workup here in emergency department diagnosis, and plan of care. All questions have been answered. The patient expressed understanding of these instructions and was agreeable to them. Incidentally, the patient with nausea and vomiting has elevated pancreas enzymes. Patient is a nontender examination. Do not fill patient has surgical abdomen. We'll monitor closely in regards to patient's elevatedlipase levels. Critical care performed (40 minutes). Time is exclusive of separately billable procedures. Time includes: direct patient care, patient reassessment, coordination of patient care, interpretation of data (laboratory data), review of patient's medical records, medical consultation and documentation of patient care. Disposition: Admitted to the Critical Care Unit. CLINICAL IMPRESSION overdose with cymbalta, acute hypernatremia, Mild nausea and vomiting acute pancreatitis. (Electronically signed by Sven Sears Dr. 10/18/2016 0:26)
--- NOTE | 2016-10-17 21:04 | ED NURSING NOTES ---
Clinical Report - Nurses [facility] [place] [address] 10/17/2016 18:17 Patient: DEBRA GRANT TRIAGE Triage time 18:26. Acuity: LEVEL 3. Chief Complaint: DRUG OVERDOSE and SUICIDE ATTEMPT and DEPRESSED. Alert. No acute distress. SEPSIS SCREEN: Sepsis Screen. Negative (no infection suspected/documented). --18:36 Ofelia Sanchez R.N. 18:26 10/17/16. BP: 107/72. HR: 80. RR: 18. O2 saturation: 100%. Temp: 98.1 F. Pain level now: 0/10. --18:36 Ofelia Sanchez R.N. Weight: 61.2 kg stated. Height/Length: 64 inches Per Patient. BMI: 23.2. --18:31 Ofelia Sanchez R.N. Medications SEROquel Oral 100 mg, at bedtime. --18:33 Ofelia Sanchez R.N. Cymbalta Oral 60 mg daily in am. --18:34 Ofelia Sanchez R.N. Lexapro Oral 20 mg, daily. --18:34 Ofelia Sanchez R.N. Allergies No Known Drug Allergy. --18:35 Ofelia Sanchez R.N. History Arrived by EMS. Historian: EMS. Primary physician (Fifi Moreno, at [facility]). ( Pt took 240, 60 mg tablets of Cymbalta, states she was feeling depressed today.). This occurred 3 PM today. ( Poison control called, advice obtained on overdose effects.). No loss of consciousness. Denies having hallucinations. 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 See report. ( 800 mls of NS completed of a 1000ml bag, has IV in LAC started by EMS). PAST MEDICAL HX: Previous suicide attempts ("a few times"). SOCIAL HX: Never smoker. No alcohol use or drug use. SELF HARM ASSESSMENT: A self harm assessment was performed. The patient answered "yes" to the question "Have you recently felt down, depressed, or hopeless?", "Have you noticed less interest or pleasure in doing things?", "Do you have thoughts of harming or killing yourself?", "Are you here because you tried to hurt yourself?" and "Have you ever tried to hurt yourself before today?" and "no" to the question "Have you recently had thoughts about harming or killing others?" and "Do you have any dangerous items in your possession?". The patient reports their behavior. In the ED the patient has been anxious. NUTRITIONAL RISK ASSESSMENT: The nutritional risk assessment revealed no deficiencies. FUNCTIONAL ASSESSMENT: Functional assessment: no impairments noted. --18:36 Ofelia Sanchez R.N. PAST MEDICAL HX: Last normal menstrual period now. Denies current . --18:48 Ofelia Sanchez R.N. ( belongings in LOCKER #5, LOCK #2). --18:53 Ruth Humphreys R.N. Interventions ID band on patient. To room. --18:36 Ofelia Sanchez R.N. PHYSICAL ASSESSMENT Patient gowned. GENERAL / NEURO / PSYCH: Alert. Oriented X 4. Appears in no acute distress. Appears anxious. ( Denies any pain or headache, has had nausea and had vomited BOTTOM SAW OPERATOR). --18:37 Ofelia Sanchez R.N. 18:48 10/17/16. GENERAL / NEURO / PSYCH: ( Pt states she does not want to be burden and that's why she tried to kill herself.). --18:48 Ofelia Sanchez R.N. NURSING PROGRESS NOTES 18:28 10/17/2016 Site #1 started prior to arrival by EMS via IV in the left antecubital space with an 20g angiocath. --18:43 Ofelia Sanchez R.N. 18:31 10/17/2016 Activated Charcoal (Charcoal) PO 100 gm given. Allergies verified and confirmed 5 rights. --18:46 Ofelia Sanchez R.N. 18:40 10/17/16. Head of bed elevated. Reassurance given. Suicide precautions initiated: a safety sweep of the room has been completed. Room made safe. Frequent one on one supervision, clothing / valuables removed. Patient identifiers checked. Call light placed in reach. Bed placed in lowest position. --18:40 Ofelia Sanchez R.N. 18:43 10/17/2016 Reglan (Metoclopramide HCl) IVP 10 mg given over 2 minute(s) via site #1. Allergies verified and confirmed 5 rights. IV patency established. IV site checked: no pain, redness, or swelling. IV flushed thoroughly pre- and post-medication administration. --18:44 Ofelia Sanchez R.N. 18:47 10/17/16. ( Pt vomited charcoal into emesis bag, lots of pill fragments seen in emesis x 2). --18:47 Ofelia Sanchez R.N. 18:40. monitor and storage bin tender, pulse oximeter and NIBP monitor placed on patient; athletic monitor- Lead II and V1; monitor alarms on. --18:49 Ofelia Sanchez R.N. 18:57 10/17/16. ( Pt requested and was given ice water to drink). --18:57 Ofelia Sanchez R.N. 18:58 10/17/2016 Started bag #2 1000 mL IV Fluids IV NS (Saline); at 1000 mL/hr via site #1. Confirmed 5 rights. --18:58 Ofelia Sanchez R.N. 18:59 10/17/2016 Site #2 started via IV in the right wrist with an 20g angiocath, with aseptic technique and good blood return; one attempt. Blood drawn: rainbow set. Labeled in the presence of the patient and sent to the lab. Saline lock flushed with 10 mL saline. --18:59 Ofelia Sanchez R.N. 19:05 10/17/16. Care transferred and report given (to LAKHWINDER Hayward). --19:05 Ofelia Sanchez R.N. 19:30 10/17/16. BP: 103/67 taken on the right arm, while lying. HR: 87 (regular, normal rate and strong). RR: 18. O2 saturation: 98% on room air. Temp: deferred. Pain level now: 0/10. --19:37 Yesy Meza R.N. Reassessment after fluids administered. She is calm. Overall patient status is the same. ( pt reports feeling dizzy, VSS, will continue to monitor.). GENERAL / NEURO / PSYCH: The patient reports anxiety is still present and currently moderate in severity. The patient reports feelings of depression that are mild in severity and associated with suicidal ideation. Patient is calm and cooperative. Alert. Oriented X 4. RESPIRATORY: No respiratory distress. GI / : No vomiting noted. SKIN: Skin is warm and dry. Two patient identifiers checked. Call light placed in reach. Side rails up x 2. Bed placed in lowest position. Brakes of bed on. --19:37 Yesy Meza R.N. Suicide precautions initiated: a safety sweep of the room is ongoing. Continuous one on one supervision. --19:37 Yesy Meza R.N. monitor and storage bin tender, pulse oximeter and NIBP monitor placed on patient; athletic monitor- Lead II. --19:37 Yesy Mzea R.N. 8 fr in/out catheterization. Return of 50 mL green-colored clear urine. She tolerated procedure well. Suicide precautions initiated: a safety sweep of the room is ongoing. Continuous one on one supervision. ( pt ambulated to and from BR with assistance, slight dizziness noted, pt unable to void, pt straight cathed for urine. pt placed back on monitor, no distress noted at this time. Will continue to monitor). Two patient identifiers checked. Call light placed in reach. Side rails up x 2. Bed placed in lowest position. Brakes of bed on. --20:24 Yesy Meza R.N. ( poison control Terrance called to update, informed to watch for QT changes and monitor for possible seizure activity, pt should be monitored overnight per poison control). --20:43 Yesy Meza R.N. 20:30 10/17/16. BP: 103/61 taken on the right arm, while lying. HR: 91. RR: 18. O2 saturation: 96% on room air. Temp: deferred. Pain level now: 0/10. --20:44 Yesy Meza R.N. The patient reports no complaints and she is calm and resting quietly. ( Close to nurses station, suicide precautions in place. will continue to monitor. VSS). GENERAL / NEURO / PSYCH: Patient is calm and cooperative. Alert. Oriented X 4. RESPIRATORY: No respiratory distress. GI / : No vomiting noted. SKIN: Skin is warm and dry. Skin color within normal limits. --21:26 Yesy Meza R.N. 21:15 10/17/16. BP: 104/66 taken on the right arm, while lying. HR: 94 (regular and normal rate). RR: 18 (regular, unlabored and normal). O2 saturation: 98%. Temp: deferred. Pain level now: 0/10. --21:27 Yesy Meza R.N. ( H+P FORM GIVEN TO PATIENT). --21:30 Cristofer Banks, ER Director [employer] 22:26 10/17/2016 Site #[address] upon admission; patent, no pain and no signs of infection or infiltration. Good blood return present. Flushed with 10 mL saline; flushes easily. --22:26 Yesy Meza R.N. 22:26 10/17/2016 Site #[address] upon admission; patent, no pain and no signs of infection or infiltration. Good blood return present. Flushed with 10 mL saline; flushes easily. --22:27 Yesy Meza R.N. 22:26 10/17/2016 IV Fluids IV NS Discontinued: bag #1 completed. Total amount infused: 1000 mL. IV patency established. IV site checked: no pain, redness, or swelling. IV flushed thoroughly. --22:26 Yesy Meza R.N. GENERAL / NEURO / PSYCH: The patient reports anxiety is still present and currently moderate in severity. Patient is calm and cooperative. Alert. Oriented X 4. RESPIRATORY: No respiratory distress. GI / : The patient reports nausea is gone now. No vomiting noted. SKIN: Skin is warm and dry. Skin color within normal limits. --22:27 Yesy Meza R.N. 22:24 10/17/16. BP: 124/89 taken on the right arm, while lying. HR: 79 (regular). RR: 18 (regular). O2 saturation: 98% on room air. Temp: 97.8 F (oral). Pain level now: 0/10. --22:27 Yesy Meza R.N. DISPOSITION / DISCHARGE Admitted to the Critical Care Unit. Transported via stretcher by nurse with monitor. Report was given to a nurse via a phone call. Report included patient's care, treatment, medications, reviewed medication reconcilliation, and condition (including any recent changes or anticipated changes). All questions were answered. Report was acknowledged and care was transferred. (Solange BUNN for ICU). Patient's personal items; items were transported with the patient. --22:38 Yesy Meza R.N. Departure time: 2242. --22:59 Yesy Meza R.N. 22:46 10/17/16. BP: 130/62 taken on the right arm, while lying. HR: 67 (regular and normal rate). RR: 18 (regular and unlabored). O2 saturation: 96% on room air. Temp: deferred. Pain level now: 0/10. --23:00 Yesy Meza R.N. Locked/Released at 10/17/2016 23:01 by Yesy Meza R.N.
--- NOTE | 2016-10-17 21:24 | Progress Note ---
Subjective General Admission History and Physical Examination Patient Name: Glory Whyte Admission Date: October 17, 2016 Primary Care Provider: Fifi Johnson M.D. Attending Physician: Carter Baker M.D. Admitting Physician: Nick Espinoza M.D. Code Status: FULL CODE Room: 306 Status: Inpatient, CCU SUBJECTIVE Historian: Patient Reliability: Poor Chief Complaint: Depression, suicide attempt, drug overdose History of Present Illness: The patient is a 51-year-old white female with a significant past medical history of depression who presented to [facility] emergency department on the day of admission following suicide attempt with drug overdose of Cymbalta. [facility] ER evaluation was consistent with drug overdose-Cymbalta, suicide attempt, depression. Secondary to the above, the patient was admitted by Nick Espinoza M.D. for further evaluation and treatment. The patient has a long-standing history of major depression and generalized anxiety disorder. She apparently became desponded over initial which she is unwilling to discuss at this time. She subsequently took an overdose of Cymbalta. Exact number of pills unknown. She does not wish to kill herself at this time and states that she wishes she had not taken overdose of medications today. She states remains depressed and anxious. She has had 3 suicide attempts in the past 2 years. She has been unable to obtain psychiatric care due to her insurance plan. PAST MEDICAL HISTORY Illnesses: 1. Depression 2. ALEX Allergies: 1. No known drug allergies Medications: 1. Cymbalta 60mg po daily 2. Lexapro 20mg po daily 3. Seroquel 100mg po q HS 4. Prazosin Dosage unknown 1 po daily Surgery: 1. Left knee secondary to ligamentous tear Injuries: 1. Ligamentous tear left knee Hospitalizations: 1. For above surgery and medical problems FAMILY HISTORY Parents: 1. Father, living, 75, healthy, 2. Mother, living, 76, coronary artery disease, myocardial infarction Siblings: 1. None Children: 1. None Other significant family history: None SOCIAL HISTORY 1. Marital Status: 2. Baptism: Protestant 3. Education: College, postgraduate education-medical school 4. 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 Occupational health exposures: None HABITS 1. Tobacco: None 2. Drugs: None 3. Alcohol: None 4. Caffeine: Intermittent minimal usage HEALTH SUPERVISION Item/Test 1. Not reviewed IMMUNIZATIONS: 1. Pneumococcal: No previous 2. Influenza: No previous 3. Tetanus: Previously obtained, date unknown ADVANCED DIRECTIVES: 1. Living well: No 2. POLST: No 3. Code Status: FULL CODE 4. 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 Donor card: Yes REVIEW OF SYSTEMS Remarkable for those things stated in the history of present illness and past medical history. Seventeen point review of system completed with the following notable findings: Eyes: Decreased visual acuity requiring corrective lenses Gastrointestinal: Constipation Physical Exam Vital Signs / I&Os Blood pressure: 107/72 mmHg Heart rate: 80/minute Respiratory rate: 18/minute Temperature: 98.1 Fahrenheit orally Pulse oximetry: 100% room air General Appearance Alert, Oriented X3, Cooperative, No acute distress, anxious HEENT Atraumatic, PERRLA, EOMI, Moist mucous membranes Lungs Clear to auscultation, Normal air movement Neck Supple, No JVD Cardiovascular Regular rate and rhythm, Normal S1 and S2, No murmurs, gallops, rubs Abdomen Normal bowel sounds, Soft, No tenderness, No guarding Extremities No cyanosis, No clubbing, No edema Neurological Cranial nerves intact, Strength 5/5 x4 ext's, No lateralizing signs Psych/Mental Status mood depressed, anxious LAB Results Laboratory Tests 10/17 Chemistry Amylase (25 - 115 U/L) 366 Lipase (73 - 393 U/L) 6590 Toxicology Urine Opiates Screen (NEGATIVE) NEGATIVE Urine Methadone Screen (NEGATIVE) NEGATIVE Ur Barbiturates Screen (NEGATIVE) NEGATIVE U Amphetamin/Meth Scrn (NEGATIVE) NEGATIVE MDMA (Ecstasy) Screen (NEGATIVE) NEGATIVE U Benzodiazepines Scrn (NEGATIVE) NEGATIVE Urine Cocaine Screen (NEGATIVE) NEGATIVE U Cannabinoids Screen (NEGATIVE) NEGATIVE Urines Urine Color YELLOW Urine Appearance CLEAR Urine pH (5.0 - 8.0) 6.0 Ur Specific Aline (1.010 - 1.030) 1.010 Urine Protein (NEGATIVE) NEGATIVE Urine Ketones (NEGATIVE) NEGATIVE Urine Blood (NEGATIVE) NEGATIVE Urine Nitrite (NEGATIVE) NEGATIVE Urine Bilirubin (NEGATIVE) NEGATIVE Urine Urobilinogen (0.2 - 1.0 EU/dL) 0.2 Ur Leukocyte Esterase (NEGATIVE) NEGATIVE Urine RBC (0 - 1 rbc/hpf) 1-3 Urine WBC (0 - 1 wbc/hpf) 0-1 Ur Epithelial Cells (0 - 5 EPI/hpf) 0-1 Urine Bacteria (NONE SEEN) TRACE (<1+) Urine Glucose (NEGATIVE) NEGATIVE Urine Test NEGATIVE Urine Comment CULT NOT INDICATED 10/17 1845 Chemistry Plasma Sodium (136 - 145 mmol/L) 147 Plasma Potassium (3.5 - 5.1 mmol/L) 3.9 Plasma Chloride (98 - 107 mmol/L) 109 CO2 (Enzymatic) (21 - 32 mmol/L) 22 BUN (7 - 18 mg/dL) 13 Creatinine (0.6 - 1.3 mg/dL) 0.7 Est GFR ( Amer) (mL/min) >60 Est GFR (Non-Af Amer) (mL/min) >60 Glucose (70 - 110 mg/dL) 104 Plasma Calcium (8.5 - 10.1 mg/dL) 9.1 Plasma Magnesium (1.8 - 2.4 mg/dL) 2.0 Total Bilirubin (0.0 - 1.0 mg/dL) 0.4 AST (15 - 37 U/L) 20 ALT (12 - 78 U/L) 23 Alkaline Phosphatase (46 - 116 U/L) 45 Creatine Kinase (24 - 260 U/L) 99 Troponin (0.00 - 1.5 ng/mL) <0.05 Total Protein (6.4 - 8.2 g/dL) 7.3 Albumin (3.3 - 5.0 g/dL) 3.9 Coagulation INR (0.8 - 1.2) 0.9 APTT (24 - 34 SECONDS) 23 Hematology WBC (4.5 - 11.5 K/uL) 5.8 RBC (4.00 - 5.20 M/uL) 4.13 Hgb (12.0 - 16.0 gm/dL) 13.7 Hct (36.0 - 46.0 %) 41.5 MCV (80 - 100 fL) 101 MCH (26 - 34 pg) 33 RDW (11.6 - 14.8 %) 13.8 Neut % (Auto) (50 - 75 %) 51.0 Lymph % (Auto) (25 - 40 %) 37.4 [place] % (Auto) (3 - 14 %) 10.4 Eos % (Auto) (0 - 4 %) 0.6 Baso % (Auto) (0 - 2 %) 0.6 Plt Count, EDTA (150 - 400 K/uL) 295 PUBS MCHC (31 - 37 g/dL) 33 Toxicology Salicylates (2.8 - 20 mg/dL) <2.8 Acetaminophen (10 - 30 ug/mL) < 10 Plasma/Serum Ethyl Alc (3 - 10 mg/dL) <3 Assessment and Plan Problem List 1. Suicide attempt Plan -The patient presents with findings of suicide attempt. -Long-standing history of depression and generalized anxiety disorder -3 previous suicide attempts -Patient has been unable to obtain adequate psychiatric evaluation and care -Mental health evaluation when medically stable and ready for discharge -Suicide precautions 2. Depression Status Chronic Onset Date Unknown Plan -Patient with long-standing history of major depression -Mental health evaluation and probable inpatient psychiatric care -Discharge planning to aid in arranging mental health evaluation when patient medically stable -Monitor -Suicide precautions 3. Pancreatitis Plan -Patient presents with findings of pancreatitis -Patient with abdominal pain and nausea vomiting -These were not significant complaints prior to presentation -Significant elevation in lipase and amylase -Check lipid profile -Review alcohol consumption history -Abdominal ultrasound -Nothing by mouth status -IV fluids, antiemetics, pain control 4. Hypernatremia Plan -Patient with mild hypernatremia -IV fluids D5 half-normal saline -Monitor 5. Overdose Plan -Patient with overdose of Cymbalta -Follow poison control recommendations on treatment -Activated charcoal administered -IV fluid therapy -Monitor for seizure activity, cardiac arrhythmias -ICU admission with telemetry 6. Macrocytosis Status Acute Onset Date Unknown Plan -Patient with findings of macrocytosis -Check B12 and folate levels -Monitor Current status: Fair, unstable Anticipated discharge date: Anticipated discharge in 1-2 days Anticipated discharge placement: Home versus [facility] Patient care time: Time spent in chart review, patient interview, physical exam, CPOE, and care documentation: 70 minutes Visit to patient today: 1 Complexity of care: High Initial patient evaluation: Emergency department GI prophylaxis: Protonix 40 mg IV daily DVT prophylaxis: SCD E&M Codes Admission: Inpt-High/ E&M Codes Admission: Inpt-High/
--- NOTE | 2016-10-17 21:24 | Progress Note ---
Subjective General Admission History and Physical Examination Patient Name: Glory Whyte Admission Date: October 17, 2016 Primary Care Provider: Fifi Johnson M.D. Attending Physician: Carter Baker M.D. Admitting Physician: Nick Espinoza M.D. Code Status: FULL CODE Room: 306 Status: Inpatient, CCU SUBJECTIVE Historian: Patient Reliability: Poor Chief Complaint: Depression, suicide attempt, drug overdose History of Present Illness: The patient is a 51-year-old white female with a significant past medical history of depression who presented to [facility] emergency department on the day of admission following suicide attempt with drug overdose of Cymbalta. [facility] ER evaluation was consistent with drug overdose-Cymbalta, suicide attempt, depression. Secondary to the above, the patient was admitted by Nick Espinoza M.D. for further evaluation and treatment. The patient has a long-standing history of major depression and generalized anxiety disorder. She apparently became desponded over initial which she is unwilling to discuss at this time. She subsequently took an overdose of Cymbalta. Exact number of pills unknown. She does not wish to kill herself at this time and states that she wishes she had not taken overdose of medications today. She states remains depressed and anxious. She has had 3 suicide attempts in the past 2 years. She has been unable to obtain psychiatric care due to her insurance plan. PAST MEDICAL HISTORY Illnesses: 1. Depression 2. ALEX Allergies: 1. No known drug allergies Medications: 1. Cymbalta 60mg po daily 2. Lexapro 20mg po daily 3. Seroquel 100mg po q HS 4. Prazosin Dosage unknown 1 po daily Surgery: 1. Left knee secondary to ligamentous tear Injuries: 1. Ligamentous tear left knee Hospitalizations: 1. For above surgery and medical problems FAMILY HISTORY Parents: 1. Father, living, 75, healthy, 2. Mother, living, 76, coronary artery disease, myocardial infarction Siblings: 1. None Children: 1. None Other significant family history: None SOCIAL HISTORY 1. Marital Status: 2. Quaker: Jehovah'S Witness 3. Education: College, postgraduate education-medical school 4. 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 Occupational health exposures: None HABITS 1. Tobacco: None 2. Drugs: None 3. Alcohol: None 4. Caffeine: Intermittent minimal usage HEALTH SUPERVISION Item/Test 1. Not reviewed IMMUNIZATIONS: 1. Pneumococcal: No previous 2. Influenza: No previous 3. Tetanus: Previously obtained, date unknown ADVANCED DIRECTIVES: 1. Living well: No 2. POLST: No 3. Code Status: FULL CODE 4. Durable Power [place] Work[employer] Health care: No 5. Donor card: Yes REVIEW OF SYSTEMS Remarkable for those things stated in the history of present illness and past medical history. Seventeen point review of system completed with the following notable findings: Eyes: Decreased visual acuity requiring corrective lenses Gastrointestinal: Constipation Physical Exam Vital Signs / I&Os Blood pressure: 107/72 mmHg Heart rate: 80/minute Respiratory rate: 18/minute Temperature: 98.1 Fahrenheit orally Pulse oximetry: 100% room air General Appearance Alert, Oriented X3, Cooperative, No acute distress, anxious HEENT Atraumatic, PERRLA, EOMI, Moist mucous membranes Lungs Clear to auscultation, Normal air movement Neck Supple, No JVD Cardiovascular Regular rate and rhythm, Normal S1 and S2, No murmurs, gallops, rubs Abdomen Normal bowel sounds, Soft, No tenderness, No guarding Extremities No cyanosis, No clubbing, No edema Neurological Cranial nerves intact, Strength 5/5 x4 ext's, No lateralizing signs Psych/Mental Status mood depressed, anxious LAB Results Laboratory Tests 10/17 Chemistry Amylase (25 - 115 U/L) 366 Lipase (73 - 393 U/L) 6590 Toxicology Urine Opiates Screen (NEGATIVE) NEGATIVE Urine Methadone Screen (NEGATIVE) NEGATIVE Ur Barbiturates Screen (NEGATIVE) NEGATIVE U Amphetamin/Meth Scrn (NEGATIVE) NEGATIVE MDMA (Ecstasy) Screen (NEGATIVE) NEGATIVE U Benzodiazepines Scrn (NEGATIVE) NEGATIVE Urine Cocaine Screen (NEGATIVE) NEGATIVE U Cannabinoids Screen (NEGATIVE) NEGATIVE Urines Urine Color YELLOW Urine Appearance CLEAR Urine pH (5.0 - 8.0) 6.0 Ur Specific [place] (1.010 - 1.030) 1.010 Urine Protein (NEGATIVE) NEGATIVE Urine Ketones (NEGATIVE) NEGATIVE Urine Blood (NEGATIVE) NEGATIVE Urine Nitrite (NEGATIVE) NEGATIVE Urine Bilirubin (NEGATIVE) NEGATIVE Urine Urobilinogen (0.2 - 1.0 EU/dL) 0.2 Ur Leukocyte Esterase (NEGATIVE) NEGATIVE Urine RBC (0 - 1 rbc/hpf) 1-3 Urine WBC (0 - 1 wbc/hpf) 0-1 Ur Epithelial Cells (0 - 5 EPI/hpf) 0-1 Urine Bacteria (NONE SEEN) TRACE (<1+) Urine Glucose (NEGATIVE) NEGATIVE Urine Test NEGATIVE Urine Comment CULT NOT INDICATED 10/17 1845 Chemistry Plasma Sodium (136 - 145 mmol/L) 147 Plasma Potassium (3.5 - 5.1 mmol/L) 3.9 Plasma Chloride (98 - 107 mmol/L) 109 CO2 (Enzymatic) (21 - 32 mmol/L) 22 BUN (7 - 18 mg/dL) 13 Creatinine (0.6 - 1.3 mg/dL) 0.7 Est GFR ( Amer) (mL/min) >60 Est GFR (Non-Af Amer) (mL/min) >60 Glucose (70 - 110 mg/dL) 104 Plasma Calcium (8.5 - 10.1 mg/dL) 9.1 Plasma Magnesium (1.8 - 2.4 mg/dL) 2.0 Total Bilirubin (0.0 - 1.0 mg/dL) 0.4 AST (15 - 37 U/L) 20 ALT (12 - 78 U/L) 23 Alkaline Phosphatase (46 - 116 U/L) 45 Creatine Kinase (24 - 260 U/L) 99 Troponin (0.00 - 1.5 ng/mL) <0.05 Total Protein (6.4 - 8.2 g/dL) 7.3 Albumin (3.3 - 5.0 g/dL) 3.9 Coagulation INR (0.8 - 1.2) 0.9 APTT (24 - 34 SECONDS) 23 Hematology WBC (4.5 - 11.5 K/uL) 5.8 RBC (4.00 - 5.20 M/uL) 4.13 Hgb (12.0 - 16.0 gm/dL) 13.7 Hct (36.0 - 46.0 %) 41.5 MCV (80 - 100 fL) 101 MCH (26 - 34 pg) 33 RDW (11.6 - 14.8 %) 13.8 Neut % (Auto) (50 - 75 %) 51.0 Lymph % (Auto) (25 - 40 %) 37.4 Wilkinson % (Auto) (3 - 14 %) 10.4 Eos % (Auto) (0 - 4 %) 0.6 Baso % (Auto) (0 - 2 %) 0.6 Plt Count, EDTA (150 - 400 K/uL) 295 PUBS MCHC (31 - 37 g/dL) 33 Toxicology Salicylates (2.8 - 20 mg/dL) <2.8 Acetaminophen (10 - 30 ug/mL) < 10 Plasma/Serum Ethyl Alc (3 - 10 mg/dL) <3 Assessment and Plan Problem List 1. Suicide attempt Plan -The patient presents with findings of suicide attempt. -Long-standing history of depression and generalized anxiety disorder -3 previous suicide attempts -Patient has been unable to obtain adequate psychiatric evaluation and care -Mental health evaluation when medically stable and ready for discharge -Suicide precautions 2. Depression Status Chronic Onset Date Unknown Plan -Patient with long-standing history of major depression -Mental health evaluation and probable inpatient psychiatric care -Discharge planning to aid in arranging mental health evaluation when patient medically stable -Monitor -Suicide precautions 3. Pancreatitis Plan -Patient presents with findings of pancreatitis -Patient with abdominal pain and nausea vomiting -These were not significant complaints prior to presentation -Significant elevation in lipase and amylase -Check lipid profile -Review alcohol consumption history -Abdominal ultrasound -Nothing by mouth status -IV fluids, antiemetics, pain control 4. Hypernatremia Plan -Patient with mild hypernatremia -IV fluids D5 half-normal saline -Monitor 5. Overdose Plan -Patient with overdose of Cymbalta -Follow poison control recommendations on treatment -Activated charcoal administered -IV fluid therapy -Monitor for seizure activity, cardiac arrhythmias -ICU admission with telemetry 6. Macrocytosis Status Acute Onset Date Unknown Plan -Patient with findings of macrocytosis -Check B12 and folate levels -Monitor Current status: Fair, unstable Anticipated discharge date: Anticipated discharge in 1-2 days Anticipated discharge placement: Home [facility] Patient care time: Time spent in chart review, patient interview, physical exam, CPOE, and care documentation: 70 minutes Visit to patient today: 1 Complexity of care: High Initial patient evaluation: Emergency department GI prophylaxis: Protonix 40 mg IV daily DVT prophylaxis: SCD E&M Codes Admission: Inpt-High/ E&M Codes Admission: Inpt-High/
[2016-10-17 23:36] VITALS: BP 127/71
[2016-10-17] MEDS ORDERED: SEROQUEL100 MG PO (23:47)
[2016-10-17] MEDS ORDERED: CYMBALTA60 MG PO (23:49)
[2016-10-17] MEDS ORDERED: LEXAPRO20 MG PO (23:50)
[2016-10-18] VITALS (24 sets, daily range): BP systolic 108–128; BP diastolic 46–86
--- NOTE | 2016-10-18 00:26 | ED DISCHARGE INSTRUCTIONS ---
Patient: DEBRA GRANT General Instructions [facility] VisitID: [id number] [address] [place] [address] 51y, F Registration Date/Time: 10/17/2016 overdose with cymbalta, acute hypernatremia, Mild nausea and vomiting acute pancreatitis. (Electronically signed by Sven Sears Dr. 10/18/2016 0:26)
--- NOTE | 2016-10-18 00:26 | ED DISCHARGE INSTRUCTIONS ---
Patient: DEBRA GRANT General Instructions [facility] VisitID: [id number] [address] [place] [address] 51y, F Registration Date/Time: 10/17/2016 overdose with cymbalta, acute hypernatremia, Mild nausea and vomiting acute pancreatitis. (Electronically signed by Sven Sears Dr. 10/18/2016 0:26)
--- NOTE | 2016-10-18 00:26 | ED MAR SUMMARY ---
..... Medication Administration Record [facility] [address] [place] [address] Patient: DEBRA GRANT Visit ID: [id number] 51y, F Weight: 61.2 kg Height/Length: 64 in BMI: 23.2 ALLERGIES: No Known Drug Allergy Given 18:31 10/17/2016 Ofelia Sanchez, RGwynNGwyn Medication Administered: ACTIVATED CHARCOAL [PO] (CHARCOAL), Dose: 100 gm PO. Medication Ordered: Activated Charcoal PO 100 gm (NOW). Given 18:43 10/17/2016 Ofelia Sanchez R.N. Medication Administered: REGLAN [IVP] (METOCLOPRAMIDE HCL), Dose: 10 mg IVP over 2 minute(s), Site: #1 left AC. Medication Ordered: Reglan IV 10 mg (NOW). Start 18:58 10/17/2016 Ofelia Sanchez RLona, Stop 22:26 10/17/2016 Yesy Meza RLona Medication Administered: IV NS (SALINE), Dose: IV Fluids, Rate: 1000 mL/hr, Dispensed: 1000 mL bag, Site: #1 left AC. Medication Ordered: IV NS : initial bolus 1000 mL (1000 mL/hr), then 1000 mL/hr for X1 (NOW); Silverio.
--- NOTE | 2016-10-18 00:26 | ED MAR SUMMARY ---
..... Medication Administration Record [facility] [address] [place] [address] Patient: DEBRA GRANT Visit ID: [id number] 51y, F Weight: 61.2 kg Height/Length: 64 in BMI: 23.2 ALLERGIES: No Known Drug Allergy Given 18:31 10/17/2016 Ofelia Sanchez, RGwynNGwyn Medication Administered: ACTIVATED CHARCOAL [PO] (CHARCOAL), Dose: 100 gm PO. Medication Ordered: Activated Charcoal PO 100 gm (NOW). Given 18:43 10/17/2016 Ofelia Sacnhez R.N. Medication Administered: REGLAN [IVP] (METOCLOPRAMIDE HCL), Dose: 10 mg IVP over 2 minute(s), Site: #1 left AC. Medication Ordered: Reglan IV 10 mg (NOW). Start 18:58 10/17/2016 Ofelia Sanchez RLona, Stop 22:26 10/17/2016 Yesy Meza RLona Medication Administered: IV NS (SALINE), Dose: IV Fluids, Rate: 1000 mL/hr, Dispensed: 1000 mL bag, Site: #1 left AC. Medication Ordered: IV NS : initial bolus 1000 mL (1000 mL/hr), then 1000 mL/hr for X1 (NOW); Silverio.
--- NOTE | 2016-10-18 00:26 | ED MED RECONCILIATION SUMMARY ---
Patient: DEBRA GRANT Medication Reconciliation Report [facility] VisitID: [id number] [address] [place] [address] 51y, F Registration Date/Time: 10/17/2016 Weight: 61.2 kg Height/Length: 64 in. BMI: 23.2 ALLERGIES: No Known Drug Allergy The patient's Home Medications are listed below: THE FOLLOWING MEDICATIONS NEED TO BE RECONCILED: Cymbalta Oral 60 mg daily in am Lexapro Oral 20 mg, daily SEROquel Oral 100 mg, at bedtime The source(s) of the original Home Medication information: Not obtained. The following Medications were given to the patient in the Emergency Department: Reglan [IVP] IVP 10 mg, administered: 10/17/2016 6:43:00 PM Activated Charcoal [PO] PO 100 gm, administered: 10/17/2016 6:31:00 PM IV NS IV Fluids bolus 0, then 1000 mL/hr, administered: 10/17/2016 6:58:00 PM The following Medications were prescribed to the patient: None.
--- NOTE | 2016-10-18 00:26 | ED MED RECONCILIATION SUMMARY ---
Patient: DEBRA GRANT Medication Reconciliation Report [facility] VisitID: [id number] [address] [place] [address] 51y, F Registration Date/Time: 10/17/2016 Weight: 61.2 kg Height/Length: 64 in. BMI: 23.2 ALLERGIES: No Known Drug Allergy The patient's Home Medications are listed below: THE FOLLOWING MEDICATIONS NEED TO BE RECONCILED: Cymbalta Oral 60 mg daily in am Lexapro Oral 20 mg, daily SEROquel Oral 100 mg, at bedtime The source(s) of the original Home Medication information: Not obtained. The following Medications were given to the patient in the Emergency Department: Reglan [IVP] IVP 10 mg, administered: 10/17/2016 6:43:00 PM Activated Charcoal [PO] PO 100 gm, administered: 10/17/2016 6:31:00 PM IV NS IV Fluids bolus 0, then 1000 mL/hr, administered: 10/17/2016 6:58:00 PM The following Medications were prescribed to the patient: None.
--- NOTE | 2016-10-18 08:08 | Progress Note ---
Subjective General complians of significant nausea, no abd. pain, no BM no fever or chills also feels jettery and off balance when stands up Physical Exam Vital Signs / I&Os Vital Signs Date Time Temp Pulse Resp B/P Pulse O2 O2 Flow FiO2 Ox Delivery Rate 05 0702 98.2 77 18 120/70 98 05/05 0604 97.5 77 18 122/65 100 Room Air 05/05 0509 97.5 85 18 127/75 100 Room Air 05/05 0416 97.9 82 20 116/71 100 Room Air 05/05 0309 97.5 85 17 109/77 100 Room Air 05/05 0206 97.7 75 15 119/63 100 Room Air 05/05 0058 97.5 100 16 123/67 100 Room Air 05/05 0006 97.7 92 118/69 100 Room Air 05/04 2336 97.5 100 22 127/71 100 Room Air /04 2325 Room Air I&O 05/05 0000 05/04 1600 05/04 0800 Intake Total Output Total 150 Balance -150 General Appearance Mild distress Lungs Clear to auscultation Cardiovascular Regular rate and rhythm, Normal S1 and S2, No murmurs, gallops, rubs Abdomen Soft (hypoactive BS), No tenderness Extremities No edema Assessment and Plan Problem List 1. Pancreatitis Plan continue IV hydration and NPO, enzymes have improved, will have U/S of abd today 2. Suicide attempt Plan will need mental health evaluation once medically stable 3. Overdose 4. Depression Status Chronic Onset Date Unknown Plan will hav mental health evaluation
--- NOTE | 2016-10-18 09:08 | DIAGNOSTIC IMAGING REPORT ---
PROCEDURE: US ABDOMEN ULTRASOUND-COMPLETE INDICATION: Pancreatitis TECHNIQUE: Platt scale and color Doppler sonographic images of the abdomen were obtained. COMPARISON: None. FINDINGS: Pancreas is normal in size and appearance. Normal liver, spleen and gallbladder. Normal CBD measures 4.2 mm. Aorta and IVC are patent. Normal hepatopetal flow. Normal kidneys. Right kidney measures 10 cm and left kidney 9.5 cm. IMPRESSION: 1. Normal pancreas 2. Normal abdominal ultrasound
[2016-10-19] VITALS (13 sets, daily range): BP systolic 99–134; BP diastolic 47–76
--- NOTE | 2016-10-19 07:38 | Progress Note ---
Subjective General Note Date: 10/19/2016 Admission Date: Observation admission date October 17, 2016 Hospital Day: Hospital day 3 PCP: Fifi Johnson MD Status: Fair Advanced Directive: Full code Room: 306 Subjective Patient reports of epigastric / abdominal pain. Patient has normalized labs. She reports that she is sad and relates that her relationship challenge. Patient will be assessed by psychiatry. Patient is reporting of her hair falling out consistently. Reviewed the labs with patient. Discussed ordering a thyroid panel. I Told her that this will be back after several days. We also discussed her outpatient care with Dr Johnson. She is anxious to get started. Patient is in need of psychiatric evaluations. Patient is always been on psychiatry watch in the past. Patient reports being anxious, jittery, nervous. Patient is not immediately suicidal. Patient requests. Understanding why her hair is falling out out patient evaluation Constitutional Denies: Chills, Sweats, Weakness. Eyes Denies: Redness, Other. ENT Denies: Nose Pain, Nasal Congestion, Mouth Swelling. Respiratory Denies: SOB w/exertion, Wheezing. Cardiovascular Denies: Light-headedness. Physical Exam Vital Signs / I&Os Vital Signs Date Time Temp Pulse Resp B/P Pulse O2 O2 Flow FiO2 Ox Delivery Rate / 1009 99.1 78 21 114/66 100 Room Air 05/06 0750 98.1 71 20 125/62 100 Room Air 05/06 0612 98.2 74 18 124/70 100 Room Air 05/06 0500 67 18 121/69 100 Room Air 05/06 0400 97 18 123/72 99 Room Air 05/06 0315 97 18 99/47 99 Room Air 05/06 0214 98.4 72 18 116/67 100 Room Air 05/06 0110 65 18 126/72 100 Room Air 05/06 0000 65 18 112/61 100 Room Air 05/05 2312 68 18 124/74 100 Room Air 05/05 2215 77 18 127/85 100 Room Air 05/05 2100 85 18 120/75 98 Room Air 05/05 2000 77 18 126/49 98 Room Air 05/05 1918 99.0 05/05 1916 86 18 121/46 100 Room Air 05/05 1805 81 18 128/75 100 05/05 1654 98.1 77 18 108/66 100 05/05 1600 98.1 81 18 126/86 100 05/05 1523 98.1 10/18 1519 81 18 126/86 100 05 1407 98.1 81 18 127/74 100 Room Air I&O 10/18 0800 10/18 1600 10/19 0000 Intake Total 1587 0 15 Output Total 248 312 1579 Balance 1187 -700 -1685 General Appearance Oriented X3, Cooperative HEENT Atraumatic, PERRLA Lungs Clear to auscultation, Normal air movement Neck Supple, No JVD Cardiovascular Normal S1 and S2, No murmurs, gallops, rubs Abdomen No guarding, No rebound, tenderness at the epigastric region Psych/Mental Status depression, crying. LAB Results Laboratory Tests 10/19 10/19 0440 0440 Chemistry Plasma Sodium (136 - 145 mmol/L) 141 Plasma Potassium (3.5 - 5.1 mmol/L) 3.8 Plasma Chloride (98 - 107 mmol/L) 105 CO2 (Enzymatic) (21 - 32 mmol/L) 27 BUN (7 - 18 mg/dL) 7 Creatinine (0.6 - 1.3 mg/dL) 0.7 Est GFR ( Amer) (mL/min) >60 Est GFR (Non-Af Amer) (mL/min) >60 Glucose (70 - 110 mg/dL) 85 Plasma Calcium (8.5 - 10.1 mg/dL) 8.4 Amylase (25 - 115 U/L) 68 Lipase (73 - 393 U/L) 190 Free T4 Calculated (0.78 - 4.13 ng/dL) 1.44 TSH 3rd Generation (0.34 - 3.74 uIU/mL) 1.676 Hematology WBC (4.5 - 11.5 K/uL) 7.6 RBC (4.00 - 5.20 M/uL) 3.68 Hgb (12.0 - 16.0 gm/dL) 12.5 Hct (36.0 - 46.0 %) 37.0 MCV (80 - 100 fL) 101 MCH (26 - 34 pg) 34 RDW (11.6 - 14.8 %) 13.7 Neut % (Auto) (50 - 75 %) 67.5 Lymph % (Auto) (25 - 40 %) 22.5 [place] % (Auto) (3 - 14 %) 8.9 Eos % (Auto) (0 - 4 %) 1.0 Baso % (Auto) (0 - 2 %) 0.1 Plt Count, EDTA (150 - 400 K/uL) 257 PUBS MCHC (31 - 37 g/dL) 34 Assessment and Plan Problem List 1. Suicide attempt Plan Patient had suicide attempt. Patient is now normalizing. Labs are normal this time. Patient is no longer having signs of pancreatitis. Patient is up and eating, walking. Assessment by psychiatry. Discussed outpatient follow-up care. 2. Depression Status Chronic Onset Date Unknown Plan History depression. Psychiatric evaluation. We'll hold any further SSRIs or medication such as citalopram. Patient should have all psychiatric medications reviewed by psychiatry. This should then be followed up with primary care. 3. Pancreatitis Plan Labs have normalized. Patient is medically stable 4. Overdose Plan Overdose of the citalopram. Normalize labs. Stable. Psychiatry overview and further evaluation Likely consequential pancreatitis. Current status: Fair, unstable Anticipated discharge date: Anticipated discharge in 1-2 days Anticipated discharge placement: Home versus mental health Hospital Patient care time: Time spent in chart review, patient interview, physical exam, CPOE, and care documentation: 70 minutes Visit to patient today: 1 Complexity of care: High Initial patient evaluation: Emergency department GI prophylaxis: Protonix 40 mg IV daily DVT prophylaxis: SCD E&M Codes Rounding: Inpt-High/44704
--- NOTE | 2016-10-20 07:27 | Progress Note ---
Subjective General Note Date: 10/19/2016 Admission Date: Observation admission date October 17, 2016 Hospital Day: Hospital day 3 PCP: Fifi Johnson MD Status: Fair Advanced Directive: Full code Room: 306 Brief history The patient is a 51-year-old white female with a significant past medical history of depression who presented to [facility] emergency department on the day of admission following suicide attempt with drug overdose of Cymbalta. [facility] ER evaluation was consistent with drug overdose-Cymbalta, suicide attempt, depression. Secondary to the above, the patient was admitted by Nick Espinoza M.D. for further evaluation and treatment. Subjective: Patient continues to report of generalized depression. She reports of intermittent abdominal discomfort. Patient has appetite and eating well. She had a good night sleep overnight. She is awaiting her discharge to [place]. Discussed the hair loss and recommendations for follow-up. Patient requests. Discharge Constitutional Denies: Chills, Sweats. Respiratory Denies: SOB w/exertion, Wheezing. Cardiovascular Denies: Palpitations. Musculoskeletal Denies: Shoulder Pain. Skin Denies: Rash. Physical Exam Vital Signs / I&Os Vital Signs Date Time Temp Pulse Resp B/P Pulse O2 O2 Flow FiO2 Ox Delivery Rate 05/ 2330 98.4 69 16 110/65 05/06 2239 98.8 85 18 134/69 100 Room Air 0.0 05/06 1846 98.8 83 18 125/76 100 Room Air 05/06 1400 81 20 104/73 100 Room Air 05/06 1009 99.1 78 21 114/66 100 Room Air 05/06 0750 98.1 71 20 125/62 100 Room Air I&O 05/06 0800 05/06 1600 05/07 0000 Intake Total 1839 1411 480 Output Total 1850 1999 530 Balance -11 -589 -50 General Appearance Oriented X3, Cooperative HEENT EOMI Lungs Clear to auscultation Neck Supple Cardiovascular Regular rate and rhythm, Normal S1 and S2 Abdomen Soft, No tenderness Assessment and Plan Problem List 1. Overdose Plan Patient overdosed on Cymbalta. Patient now is to be discharged to [place] for psychiatric consultation evaluations. 2. Suicide attempt Plan Patient with recent suicide attempt. Patient took multiple of prescribed medication. Patient was inpatient for stabilization from medical point of view. Patient with recent onset of pancreatitis. May or may not be related to the Cymbalta. Patient's vitals are stable patient did well overnigt. Patient medically cleared for psychiatric inpatient care 3. Depression Status Chronic Onset Date Unknown Plan Long history of depression. Stopping Cymbalta. Continue with the Ecitalopram./ [place] 4. Pancreatitis Plan On admission found to have elevated amylase and lipase consistent with a pancreatitis. All psychiatrics pharmaceuticals were discontinued. Subjective improvement along with a normalization of the labs. Patient had minor abdominal complaints on discharge. Patient was admitted to [facility] for observation and treatment. Caution in re-introduction of the antipsychotics Current status: Fair; stable; medically stable. Anticipated discharge date: Anticipated discharge 10/20/2016.. Anticipated discharge placement: [place] for inpatient psychiatric evaluations Patient care time: Time spent in chart review, patient interview, physical exam, CPOE, and care documentation: < 30 minutes; for discharge. Visit to patient today: 1 Complexity of care: High Initial patient evaluation: Emergency department E&M Codes Rounding: Inpt-Moderate/52812 E&M Codes Rounding: Inpt-Moderate/00040
--- NOTE | 2016-10-20 07:27 | Progress Note ---
Subjective General Note Date: 10/19/2016 Admission Date: Observation admission date October 17, 2016 Hospital Day: Hospital day 3 PCP: Fifi Johnson MD Status: Fair Advanced Directive: Full code Room: 306 Brief history The patient is a 51-year-old white female with a significant past medical history of depression who presented to [facility] emergency department on the day of admission following suicide attempt with drug overdose of Cymbalta. [facility] ER evaluation was consistent with drug overdose-Cymbalta, suicide attempt, depression. Secondary to the above, the patient was admitted by Nick Espinoza M.D. for further evaluation and treatment. Subjective: Patient continues to report of generalized depression. She reports of intermittent abdominal discomfort. Patient has appetite and eating well. She had a good night sleep overnight. She is awaiting her discharge to [place]. Discussed the hair loss and recommendations for follow-up. Patient requests. Discharge Constitutional Denies: Chills, Sweats. Respiratory Denies: SOB w/exertion, Wheezing. Cardiovascular Denies: Palpitations. Musculoskeletal Denies: Shoulder Pain. Skin Denies: Rash. Physical Exam Vital Signs / I&Os Vital Signs Date Time Temp Pulse Resp B/P Pulse O2 O2 Flow FiO2 Ox Delivery Rate 05/ 2330 98.4 69 16 110/65 05/06 2239 98.8 85 18 134/69 100 Room Air 0.0 05/06 1846 98.8 83 18 125/76 100 Room Air 05/06 1400 81 20 104/73 100 Room Air 05/06 1009 99.1 78 21 114/66 100 Room Air 05/06 0750 98.1 71 20 125/62 100 Room Air I&O 05/06 0800 05/06 1600 05/07 0000 Intake Total 1839 1411 480 Output Total 1850 1999 530 Balance -11 -589 -50 General Appearance Oriented X3, Cooperative HEENT EOMI Lungs Clear to auscultation Neck Supple Cardiovascular Regular rate and rhythm, Normal S1 and S2 Abdomen Soft, No tenderness Assessment and Plan Problem List 1. Overdose Plan Patient overdosed on Cymbalta. Patient now is to be discharged to [place] for psychiatric consultation evaluations. 2. Suicide attempt Plan Patient with recent suicide attempt. Patient took multiple of prescribed medication. Patient was inpatient for stabilization from medical point of view. Patient with recent onset of pancreatitis. May or may not be related to the Cymbalta. Patient's vitals are stable patient did well overnigt. Patient medically cleared for psychiatric inpatient care 3. Depression Status Chronic Onset Date Unknown Plan Long history of depression. Stopping Cymbalta. Continue with the Ecitalopram./ [place] 4. Pancreatitis Plan On admission found to have elevated amylase and lipase consistent with a pancreatitis. All psychiatrics pharmaceuticals were discontinued. Subjective improvement along with a normalization of the labs. Patient had minor abdominal complaints on discharge. Patient was admitted to [facility] for observation and treatment. Caution in re-introduction of the antipsychotics Current status: Fair; stable; medically stable. Anticipated discharge date: Anticipated discharge 10/20/2016.. Anticipated discharge placement: [place] for inpatient psychiatric evaluations Patient care time: Time spent in chart review, patient interview, physical exam, CPOE, and care documentation: < 30 minutes; for discharge. Visit to patient today: 1 Complexity of care: High Initial patient evaluation: Emergency department E&M Codes Rounding: Inpt-Moderate/56292 E&M Codes Rounding: Inpt-Moderate/67276
[2016-10-20 07:52] VITALS: BP 112/74
--- NOTE | 2016-10-20 08:41 | Provider's Discharge Care Plan ---
Problem, Goal, Plan Problem List 1. Overdose Goals: Improve disease control, Improved health/wellness, Prevent disease progress, Therapeutic intervention Instructions: Follow up as directed, discontinued medication follow recommendations from [place] inpatient facility 2. Pancreatitis Goals: Improve disease control, Prevent disease progress Instructions: Follow up as directed, potential causation related to overdose of medication 3. Suicide attempt Goals: Diagnostic testing, Improved health/wellness, Learn about illness, Prevent disease progress Instructions: Follow up as needed, Reduce stress, follow recommendations from [place] 4. Depression Goals: Improve disease control, Learn about illness, Prevent disease progress , Therapeutic intervention Instructions: Take meds as directed, follow recommendations from [place] regarding ecitalopram and Seroquel
--- NOTE | 2016-10-20 09:14 | Discharge Summary ---
Discharge Summary Report Admit Date 10/17/16 Discharge Date 10/20/16 Admission Diagnosis 1. Suicide attempt 2. Depression 3. Pancreatitis 4. Hypernatremia 5. Overdose 6. Macrocytosis Discharge Diagnosis 1. Suicide attempt 2. Depression 3. Pancreatitis 4. Hypernatremia 5. Overdose 6. Macrocytosis Brief History 51-year-old white female with a significant past medical history of depression who presented to [facility] emergency department on the day of admission following suicide attempt with drug overdose of Cymbalta. [facility] ER evaluation was consistent with drug overdose-Cymbalta, suicide attempt, depression. Secondary to the above, the patient was admitted by Nick Espinoza M.D. for further evaluation and treatment. The patient has a long-standing history of major depression and generalized anxiety disorder. She apparently became desponded over initial which she is unwilling to discuss at this time. She subsequently took an overdose of Cymbalta. Exact number of pills unknown. She does not wish to kill herself at this time and states that she wishes she had not taken overdose of medications today. She states remains depressed and anxious. She has had 3 suicide attempts in the past 2 years. She has been unable to obtain psychiatric care due to her insurance plan. Hospital Course 51-year-old female who was admitted with clinical depression, found to have overdosed to attempting suicide. Patient was diagnosed upon admission with a pancreatitis (amylase 184, lipase 877), macrocytosis (101 mcv) and hypernatremia sodium 145. Patient was found to have taken multiple taps of her Cymbalta. Patient was on bedrest and nothing by mouth for at least 24 hours. Patient is on support to maintain fluid hydration in for detox from overdose. Patient was found with stabilizing labs. The lipase amylase returned to normal. Triglycerides were low at 21 normal cholesterol in LDL 125. Patient had symptomatic epigastric pain that had minimal influence with advancing diet. Patient continued to have a elevated MCV; B12 was at 928 normal and folate was 16 normal. But relieved with Maintained fluid hydration. Labs were followed up regarding pancreatitis, anemia and macrocytosis. She reported of progressive hair loss. Thyroid panel was found to be normal. Discussed options for care regarding her outpatient treatment for hair loss. Patient was medically stable on day 2 for assessment by the psychiatric team. Patient's psychiatric profile was assessed and was found that she would maintain safety by transferred to [facility]. Patient was discharged to [facility]. General Appearance Oriented X3, Cooperative HEENT EOMI Lungs Normal air movement Cardiovascular Normal S1, Normal S2 Skin No Rashes Discharge Instructions/Meds Patient was discharged to [facility]. Caution and appropriate management per psychiatry for reintroduction of the antipsychotics. Recommending follow-up with primary care provider to review her recommended physical needs. Patient should have follow-up with primary care 2-3 days from discharge from [place]. Patient was discharged with caution; 100 mg Seroquel at at bedtime. Escitalopram 10 mg by mouth daily Patient should return to an Emergent facility with profound depression and suicidal thoughts, ideation or other emergent concern.
--- NOTE | 2016-10-20 09:14 | Discharge Summary ---
Discharge Summary Report Admit Date 10/17/16 Discharge Date 10/20/16 Admission Diagnosis 1. Suicide attempt 2. Depression 3. Pancreatitis 4. Hypernatremia 5. Overdose 6. Macrocytosis Discharge Diagnosis 1. Suicide attempt 2. Depression 3. Pancreatitis 4. Hypernatremia 5. Overdose 6. Macrocytosis Brief History 51-year-old white female with a significant past medical history of depression who presented to [facility] emergency department on the day of admission following suicide attempt with drug overdose of Cymbalta. [facility] ER evaluation was consistent with drug overdose-Cymbalta, suicide attempt, depression. Secondary to the above, the patient was admitted by Nick Espinoza M.D. for further evaluation and treatment. The patient has a long-standing history of major depression and generalized anxiety disorder. She apparently became desponded over initial which she is unwilling to discuss at this time. She subsequently took an overdose of Cymbalta. Exact number of pills unknown. She does not wish to kill herself at this time and states that she wishes she had not taken overdose of medications today. She states remains depressed and anxious. She has had 3 suicide attempts in the past 2 years. She has been unable to obtain psychiatric care due to her insurance plan. Hospital Course 51-year-old female who was admitted with clinical depression, found to have overdosed to attempting suicide. Patient was diagnosed upon admission with a pancreatitis (amylase 184, lipase 877), macrocytosis (101 mcv) and hypernatremia sodium 145. Patient was found to have taken multiple taps of her Cymbalta. Patient was on bedrest and nothing by mouth for at least 24 hours. Patient is on support to maintain fluid hydration in for detox from overdose. Patient was found with stabilizing labs. The lipase amylase returned to normal. Triglycerides were low at 21 normal cholesterol in LDL 125. Patient had symptomatic epigastric pain that had minimal influence with advancing diet. Patient continued to have a elevated MCV; B12 was at 928 normal and folate was 16 normal. But relieved with Maintained fluid hydration. Labs were followed up regarding pancreatitis, anemia and macrocytosis. She reported of progressive hair loss. Thyroid panel was found to be normal. Discussed options for care regarding her outpatient treatment for hair loss. Patient was medically stable on day 2 for assessment by the psychiatric team. Patient's psychiatric profile was assessed and was found that she would maintain safety by transferred to [facility]. Patient was discharged to [facility]. General Appearance Oriented X3, Cooperative HEENT EOMI Lungs Normal air movement Cardiovascular Normal S1, Normal S2 Skin No Rashes Discharge Instructions/Meds Patient was discharged to [facility]. Caution and appropriate management per psychiatry for reintroduction of the antipsychotics. Recommending follow-up with primary care provider to review her recommended physical needs. Patient should have follow-up with primary care 2-3 days from discharge from [place]. Patient was discharged with caution; 100 mg Seroquel at at bedtime. Escitalopram 10 mg by mouth daily Patient should return to an Emergent facility with profound depression and suicidal thoughts, ideation or other emergent concern.
== END 2016-10-20 08:35 | DRG 812 ==
LOC: ED SRH 18:17 → TRANS SRH 21:09 → CC SRH 23:02 → OB SRH 23:03 → CC SRH 10-19 11:40 → OB SRH 10-19 23:59
PROVIDERS: ADMIT Student in an Organized Health Care Education/Training Program
DX: T43.212A Poisoning by selective serotonin and norepinephrine reuptake inhibitors, intentional self-harm, initial encounter (principal); E87.0 Hyperosmolality and hypernatremia; K85.90 Acute pancreatitis without necrosis or infection, unspecified; R11.2 Nausea with vomiting, unspecified; F32.9 Major depressive disorder, single episode, unspecified; F41.1 Generalized anxiety disorder
CPT/HCPCS: 81460; 90004; 90047; 90074; 90100; 90616; 90648; 91504; 91505; 92010; 92132; 92235; 92530; 92610; 92690; 92720; 92760; 92761; 92762; 92763; 92764; 92765; 92766; 92767; 92780; 93070; 93140; 94001; 94060; 95059; 97000